=== PATIENT | female | born 1995 | race African-American/Black ===

== ENCOUNTER 2020-01-25 13:40 | Outpatient (CLI) | payer OTHER | END 2020-01-25 13:41 | disposition critical access hospital (66) | LOC: EMS 13:40 | PROVIDERS: ATTEND Surgery | DX: R11.2 Nausea with vomiting, unspecified (principal); R53.1 Weakness | CPT/HCPCS: A0425; A0429 ==

== ENCOUNTER 2020-01-25 13:57 | Emergency (ER) | payer OTHER ==
[2020-01-25] MEDS ORDERED: SODIUM CHLORIDE 0.9% 1,000 ML IV STA ×2 (14:32)
[2020-01-25] MEDS ORDERED: MORPHINE 2 MG/ML CARPUJECT IVP STA ×2 (14:57→16:34)
[2020-01-25] MEDS ORDERED: ONDANSETRON 4 MG/2 ML VIAL IVP STA (14:57)
--- NOTE | 2020-01-25 15:50 | ED Physician Documentation ---
History of Present Illness - Stated complaint Stated Complaint: SICK/ - Chief complaint Chief Complaint: Abd Pain - History obtained from History obtained from: Patient - History of Present Illness Timing: How many weeks ago (2) - Additonal information Additional information: 24-year-old female states that she has had lower abdominal and pelvic pain for the past 2 weeks. She states that she took a test approximately 1 week ago and it was positive. Unsure how far along she is. Has had nausea and vomiting for the past 3 days. No vaginal bleeding or discharge. 1 para 0. Nothing makes it better or worse. Review of Systems Constitutional: denies: Fever, Chills Cardiac: denies: Chest pain / pressure Respiratory: denies: Cough GI: reports: Nausea, Vomiting Skin: denies: Rash Musculoskeletal: denies: Neck pain, Back pain Neurologic: denies: Headache PD PAST MEDICAL HISTORY - Past Medical History Past Medical History: No - Past Surgical History Past Surgical History: No - Present Medications Home Medications: Ambulatory Orders Medication Instructions Recorded Confirmed Metoclopramide [Reglan] 10 mg PO Q6H PRN #20 tablet 01/25/20 Nitrofurantoin Monohyd/M-Cryst 100 mg PO BID #10 capsule 01/25/20 [Macrobid 100 mg Capsule] - Allergies Allergies/Adverse Reactions: Allergies Allergy/AdvReac Type Severity Reaction Status Date / Time No Known Drug Allergies Allergy Verified 01/25/20 14:02 - Social History Does the pt smoke?: No Smoking Status: Never smoker Does the pt drink ETOH?: No Does the pt have substance abuse?: No - Immunizations Immunizations are current?: Yes - POLST Patient has POLST: No PD ED PE NORMAL - Vitals Vital signs reviewed: Yes - General General: Alert and oriented X 3, No acute distress - HEENT HEENT: Moist mucous membranes - Neck Neck: Supple, no meningeal sign - Cardiac Cardiac: RRR - Respiratory Respiratory: No respiratory distress, Clear bilaterally - Abdomen Abdomen: Soft, Non distended, Other (Tender to palpation right low pelvic. No peritoneal signs.) - Female Female : Pt declined - Back Back: No CVA TTP - Derm Derm: Warm and dry - Extremities Extremities: No edema, No calf tenderness / cord - Neuro Neuro: Alert and oriented X 3 Results - Vitals Vitals: Vital Signs - 24 hr 01/25/20 01/25/20 01/25/20 14:02 14:06 16:06 Temperature 36.6 C 36.6 C Heart Rate 86 86 84 Respiratory 16 16 16 Rate Blood Pressure 112/55 L 112/59 L 110/60 O2 Saturation 100 100 100 01/25/20 18:00 Temperature Heart Rate 82 Respiratory 16 Rate Blood Pressure 112/62 O2 Saturation 100 Oxygen O2 Source Room air - Labs Labs: Laboratory Tests 01/25/20 01/25/20 01/25/20 16:20 17:04 17:04 WBC 4.2 L RBC 3.56 L Hgb 10.8 L Hct 31.2 L MCV 87.6 MCH 30.3 MCHC 34.6 RDW 12.2 Plt Count 212 MPV 10.1 Neut # (Auto) 2.2 Lymph # (Auto) 1.6 [place] # (Auto) 0.4 Eos # (Auto) 0.1 Baso # (Auto) 0.0 Absolute Nucleated RBC 0.00 Nucleated RBC % 0.0 Sodium 134 L Potassium 3.6 Chloride 107 Carbon Dioxide 19 L Anion Gap 8.0 BUN < 5 L Creatinine 0.5 Estimated GFR (MDRD) 182 Glucose 76 Calcium 8.7 Phosphorus 3.0 Magnesium 1.9 Total Bilirubin 0.6 AST 16 ALT < 10 L Alkaline Phosphatase 37 L Total Protein 6.7 Albumin 3.9 Globulin 2.8 Albumin/Globulin Ratio 1.4 Lipase 31 HCG, Quant Urine Color YELLOW Urine Clarity HAZY Urine pH 8.0 H Ur Specific [place] 1.010 Urine Protein NEGATIVE Urine Glucose (UA) NEGATIVE Urine Ketones NEGATIVE Urine Occult Blood NEGATIVE Urine Nitrite NEGATIVE Urine Bilirubin NEGATIVE Urine Urobilinogen 0.2 (NORMAL) Ur Leukocyte Esterase TRACE H Urine RBC 0-5 Urine WBC 6-10 H Ur Squamous Epith Cells MANY Squamous H Urine Bacteria Few Ur Microscopic Review INDICATED Urine Culture Comments NOT INDICATED 01/25/20 17:04 WBC RBC Hgb Hct MCV MCH MCHC RDW Plt Count MPV Neut # (Auto) Lymph # (Auto) [place] # (Auto) Eos # (Auto) Baso # (Auto) Absolute Nucleated RBC Nucleated RBC % Sodium Potassium Chloride Carbon Dioxide Anion Gap BUN Creatinine Estimated GFR (MDRD) Glucose Calcium Phosphorus Magnesium Total Bilirubin AST ALT Alkaline Phosphatase Total Protein Albumin Globulin Albumin/Globulin Ratio Lipase HCG, Quant 89521.00 Urine Color Urine Clarity Urine pH Ur Specific [place] Urine Protein Urine Glucose (UA) Urine Ketones Urine Occult Blood Urine Nitrite Urine Bilirubin Urine Urobilinogen Ur Leukocyte Esterase Urine RBC Urine WBC Ur Squamous Epith Cells Urine Bacteria Ur Microscopic Review Urine Culture Comments - Rads (name of study) OB US Radiology: Prelim report reviewed, EMP read contemporaneously, See rad report (1. A single living IUP with the estimated gestational age 6 weeks 5 days corresponding to ultrasound BENY 09/20/2020, which is concordant with clinical dating. 2. A small perigestational bleed. ) PD MEDICAL DECISION MAKING - ED course Complexity details: reviewed results, re-evaluated patient, considered differential, d/w patient, d/w family ED course: Patient with a UTI. Will place on antibiotics. She is well-appearing, nontoxic. Afebrile. No evidence of ectopic , heterotopic . Pain well controlled. Tolerating p.o. without difficulty. Feels better after IV fluids. We will prescribe Reglan for home. She will follow-up with OB for further care. Patient counseled regarding signs and symptoms for which I believe and urgent re-evaluation would be necessary. Patient with good understanding of and agreement to plan and is comfortable going home at this time This document was made in part using voice recognition software. While efforts are made to proofread this document, sound alike and grammatical errors may occur. Departure - Departure Disposition: 01 Home, Self Care Clinical Impression: Vomiting affecting UTI (urinary tract infection) Qualifiers: Urinary tract infection type: acute cystitis Hematuria presence: without hematuria Qualified Code(s): N30.00 - Acute cystitis without hematuria Instructions: ED Preg Morning Sickness, ED UTI Cystitis Female Follow-Up: Your,doctor in 1 week [Other] Prescriptions: Nitrofurantoin Monohyd/M-Cryst [Macrobid 100 mg Capsule] 100 mg PO BID #10 capsule Metoclopramide [Reglan] 10 mg PO Q6H PRN #20 tablet PRN Reason: Nausea / Vomiting Comments: Take all antibiotics until gone. Return if you worsen. You appear to be approximately 6 weeks today. Discharge Date/Time: 01/25/20 18:45
[2020-01-25 16:34] LABS: BILIRUBIN,URINE NEGATIVE (NEGATIVE); GLUCOSE, URINE (UA) NEGATIVE (NEGATIVE); KETONES,URINE (UA) NEGATIVE (NEGATIVE); LEUKOCYTE ESTERASE, URINE TRACE (NEGATIVE); NITRITE,URINE NEGATIVE (NEGATIVE); OCCULT BLOOD,URINE NEGATIVE (NEGATIVE); PROTEIN,URINE NEGATIVE (NEGATIVE); UROBILINOGEN,URINE 0.2 (NORMAL) E.U./dL (NORMAL)
[2020-01-25 16:35] LABS: CLARITY,URINE HAZY (CLEAR)
[2020-01-25 16:43] LABS: BACTERIA,URINE Few /HPF (None Seen); RBC,URINE 0-5 /HPF (0-5); SQUAMOUS EPITHELIAL CELL,UR MANY Squamous (<= Few)
--- NOTE | 2020-01-25 16:56 | Ultrasound Report ---
PROCEDURE: OB First Trimester INDICATIONS: R pelvic pain, +preg test OUTSIDE/PRIOR DATING DATA: Last menstrual period (LMP): 12/13/2019 LMP-based estimated date of delivery (BENY): 09/18/2020. First dating scan (date and location): 01/25/2020 at . Estimated date of delivery (BENY) from first dating scan: 09/20/2020. TECHNIQUE: Real-time scanning was performed of the fetus and maternal pelvic organs, with image documentation. COMPARISON: None. FINDINGS: There is a single living IUP with the estimated gestational age of 6 weeks 5 days. h eart tone is present with heart rate 105 BPM. A small.perigestational bleed is present inferior to gestational sac measuring 2.2 x 0.5 x 1.6 cm. Measurement variability in dating: +/- 4 weeks by LMP, +/- 7 days by mean sac diameter (use before 6 weeks gestation if crown-rump length not able to be measured), +/- 5 days by crown-rump length (6-12 weeks gestation). Maternal organs: Ovaries are grossly normal. There is a corpus luteal cyst in the right ovary measur ing 2.9 x 1.7 x 2.1 cm. In addition, there is a simple cyst in the right ovary measuring 1.9 x 1.8 x 2.1 cm.. Limited images through the kidneys demonstrate no hydronephrosis. IMPRESSION: 1. A single living IUP with the estimated gestational age 6 weeks 5 days corresponding to ultrasound BENY 09/20/2020, which is concordant with clinical dating. 2. A small perigestational bleed. Reviewed by: Carlito Fowler MD on 01/25/2020 4:55 PM PDT Approved by: Carlito Fowler MD on 01/25/2020 4:55 PM PDT Station ID: [id number]
[2020-01-25 17:13] LABS: BASOPHILS % (AUTO) 0.5 %; EOSINOPHILS # (AUTO) 0.1 10^3/uL (0.0-0.7); EOSINOPHILS % (AUTO) 1.4 %; HGB - HEMOGLOBIN 10.8 g/dL (12.0-16.0); LYMPHOCYTES # (AUTO) 1.6 10^3/uL (1.5-3.5); LYMPHOCYTES % (AUTO) 38.1 %; MEAN CORPUSCULAR HEMOGLOBIN 30.3 pg (27.0-31.0); MEAN CORPUSCULAR HGB CONC 34.6 g/dL (32.0-36.0); MEAN CORPUSCULAR VOLUME 87.6 fL (81.0-99.0); MEAN PLATELET VOLUME 10.1 fL (7.9-10.8); MONOCYTES # (AUTO) 0.4 10^3/uL (0.0-1.0); MONOCYTES % (AUTO) 8.7 %; NEUTROPHILS # (AUTO) 2.2 10^3/uL (1.5-6.6); NEUTROPHILS % (AUTO) 51.1 %; PLT - PLATELET COUNT 212 10^3/uL (130-450); RED BLOOD COUNT 3.56 10^6/uL (4.20-5.40); RED CELL DISTRIBUTION WIDTH 12.2 % (12.0-15.0); WHITE BLOOD COUNT 4.2 x10^3/uL (4.8-10.8)
[2020-01-25 17:38] LABS: ALBUMIN 3.9 g/dL (3.2-5.5); ALBUMIN/GLOBULIN RATIO 1.4 (1.0-2.2); ALKALINE PHOSPHATASE 37 IU/L (42-121); ALT ALANINE AMINOTRANSFERASE < 10 IU/L (10-60); AST ASPARTATE AMINOTRANSFERASE 16 IU/L (10-42); BILIRUBIN,TOTAL 0.6 mg/dL (0.2-1.0); BUN - BLOOD UREA NITROGEN < 5 mg/dL (6-20); CALCIUM 8.7 mg/dL (8.5-10.3); CARBON DIOXIDE - CO2 19 mmol/L (21-32); CHLORIDE 107 mmol/L (101-111); CREATININE 0.5 mg/dL (0.4-1.0); GLUCOSE 76 mg/dL (70-100); LIPASE 31 U/L (22-51); MAGNESIUM 1.9 mg/dL (1.7-2.8); SODIUM 134 mmol/L (135-145); TOTAL PROTEIN 6.7 g/dL (6.7-8.2)
[2020-01-25] MEDS ORDERED: NITROFURANTOIN MACRO 100 MG CAPSULE PO STA (18:21)
[2020-01-25 18:44] VITALS: BP 112/62
--- NOTE | 2020-01-26 09:42 | Ultrasound Report ---
PROCEDURE: OB Transvaginal INDICATIONS: R pelvic pain, +preg test OUTSIDE/PRIOR DATING DATA: Last menstrual period (LMP): 12/13/2019. LMP-based estimated date of delivery (BENY): 09/18/2020. First dating scan (date and location): 01/25/2020. Estimated date of delivery (BENY) from first dating scan: 09/24/2020. TECHNIQUE: Real-time scanning was performed of the fetus and maternal pelvic organs, with image documentation. Endovaginal scanning was also performed to better visualize the fetus and maternal ovaries. COMPARISON: None FINDINGS: Embryo: Single live intrauterine is identified with heart rate of 105 bpm. [place]-rum p length measures 1.8 cm corresponding to 5 weeks 6 days. Small focus of subchorionic hemorrhage infe rior to gestational sac is identified measuring 2.2 x 0.5 x 1.6 cm. Measurement variability in dating: +/- 4 weeks by LMP, +/- 7 days by mean sac diameter (use before 6 weeks gestation if crown-rump length not able to be measured), +/- 5 days by crown-rump length (6-12 weeks gestation). Maternal organs: Ovaries demonstrate a right corpus luteal cyst.. Limited images through the kidney s demonstrate no hydronephrosis. IMPRESSION: 1. Single live intrauterine with ultrasound gestational age of 5 weeks 6 days corresponding to ultrasound BENY of 09/24/2020. 2. Small subchorionic hemorrhage. Reviewed by: Suzan Pond MD on 01/26/2020 9:40 AM PDT Approved by: Suzan Pond MD on 01/26/2020 9:40 AM PDT Station ID: [id number]
== END 2020-01-25 18:45 | disposition home or self-care (01) ==
LOC: ED 13:57
DX: O21.9 Vomiting of pregnancy, unspecified (principal); O23.41 Unspecified infection of urinary tract in pregnancy, first trimester; Z3A.01 Less than 8 weeks gestation of pregnancy
CPT/HCPCS: 36415; 76801; 76817; 80053; 81001; 83690; 83735; 84100; 84702; 85025; 96361; 96374; 96375; 96376; 99284; A9270; 81003; 87086

== ENCOUNTER 2020-08-13 08:00 | Outpatient (CLI) | payer OTHER ==
[2020-08-13 17:16] LABS: CANDIDA GROUP DNA NEGATIVE (NEGATIVE); CANDIDA KRUSEI DNA NEGATIVE (NEGATIVE); TRICHOMONAS VAGINALIS DNA NEGATIVE (NEGATIVE)
== END 2020-08-13 23:59 | disposition home or self-care (01) ==
LOC: LAB 08:00
PROVIDERS: ATTEND Advanced Practice Midwife
DX: O23.599 Infection of other part of genital tract in pregnancy, unspecified trimester (principal)
CPT/HCPCS: 87661; 87801

== ENCOUNTER 2020-08-25 10:00 | Outpatient (CLI) | payer OTHER ==
[2020-08-25 19:55] LABS: TRICHOMONAS VAGINALIS DNA NEGATIVE (NEGATIVE)
== END 2020-08-25 23:59 | disposition home or self-care (01) ==
LOC: LAB.R 10:00
PROVIDERS: ATTEND Obstetrics & Gynecology
DX: Z34.90 Encounter for supervision of normal pregnancy, unspecified, unspecified trimester (principal); Z36.85 Encounter for antenatal screening for Streptococcus B
CPT/HCPCS: 87491; 87591; 87661; 87797

== ENCOUNTER 2020-08-28 15:37 | Outpatient (CLI) | payer OTHER ==
--- NOTE | 2020-08-28 17:14 | Ultrasound Report ---
PROCEDURE: OB F/U or Repeat INDICATIONS: UTERINE SIZE/DATE DISCREPENCY OUTSIDE/PRIOR DATING DATA: Last menstrual period (LMP): 12/13/2019. LMP-based estimated date of delivery (BENY): 09/18/2020. First dating scan (date and location): 01/25/2020. Estimated date of delivery (BENY) from first dating scan: 09/20/2020. TECHNIQUE: Real-time scanning was performed of the fetus, with image documentation and biometric measurements. Endovaginal scanning: Not indicated COMPARISON: 01/25/2020. FINDINGS: General: A single living intrauterine gestation is present. Presentation: Vertex Placenta: Placental position is posterior fundal, without previa. Amniotic fluid index: 17.9 cm, normal for gestational age. heart rate: 137 beats per minute. Maternal cervical canal: cervical canal is closed and is grossly normal in length. biometrics: Biparietal diameter: 8.4 cm, 33 weeks, 6 days Head circumference: 31 cm, 34 weeks, 4 days Abdominal circumference: 30.7 cm, 34 weeks, 5 days Femur length: 6.7 cm, 34 weeks, 3 days Estimated gestational age from initial scan: 37 weeks, 0 day. Composite gestational age from present scan: 34 weeks, 3 days Estimated weight and percentile: 2448 g, 6.6% Measurement variability in biometric dating: +/- 10 days from 12-20 weeks gestation, +/- 2 weeks from 20-30 weeks gestation, +/- 3 weeks at 30 weeks gestation or more. Other: chest, stomach, bilateral kidneys and urinary bladder are visualized and are within norm al limits. Umbilical artery S/D ratio measures 2.3, 2.1 and 2.5 and are within normal limits. IMPRESSION: 1. Single live intrauterine with fetus in vertex presentation. Normal amount of amniotic fl uid. heart rate is 137 bpm. 2. Estimated weight is at 6.6%. Both BPD and head circumference measurements are less than 5%. Femur length is at 3.4%, abdominal circumference is less than 10%. 3. Normal umbilical artery S/D ratio. Reviewed by: Chas Raymond MD on 08/28/2020 5:12 PM PST Approved by: Chas Raymond MD on 08/28/2020 5:12 PM PST Station ID: [id number]
== END 2020-08-28 15:38 | disposition home or self-care (01) ==
LOC: DI 15:37
PROVIDERS: ATTEND Obstetrics & Gynecology
DX: O26.843 Uterine size-date discrepancy, third trimester (principal); Z3A.34 34 weeks gestation of pregnancy

== ENCOUNTER 2020-09-01 16:36 | Outpatient (CLI) | payer OTHER ==
[2020-09-01 17:09] VITALS: BP 116/73
--- NOTE | 2020-09-01 21:28 | PROCEDURE REPORT ---
- HPI Diagnosis/Indication for NST: Intrauterine growth restriction Current EDU 09/18/20 Gestation 37 Weeks and 4 Days 1 Para 0 Vital Signs Temperature 98.4 F 09/01/20 16:34 Heart Rate 101 H 09/01/20 16:34 Respiratory Rate 16 09/01/20 16:34 Blood Pressure 116/73 09/01/20 16:34 O2 Saturation 100 09/01/20 16:34 Temperature 98.4 F 09/01/20 16:34 Heart Rate 101 H 09/01/20 16:34 Respiratory Rate 16 09/01/20 16:34 Blood Pressure 116/73 09/01/20 16:34 O2 Saturation 100 09/01/20 16:34 - NST Procedure NST Procedure Start Date 09/01/20 Start Time 16:32 Stop Time 17:01 Vibroacoustic Stimulation Used Yes Patient States Movement Yes - Results and Plan Findings/Impression: Baseline: BPM 140 Variability: Moderate Accelerations: Present Decelerations: Absent Trends in FHR over time: no changes [place] contractions in 10 minutes: 0 Impression: reactive Category 1 NST
== END 2020-09-01 17:00 | disposition home or self-care (01) ==
LOC: FBP 16:36 → WFO 16:36
PROVIDERS: ATTEND Obstetrics & Gynecology
DX: O36.5930 Maternal care for other known or suspected poor fetal growth, third trimester, not applicable or unspecified (principal); Z3A.37 37 weeks gestation of pregnancy
CPT/HCPCS: 59025

== ENCOUNTER 2020-09-04 16:45 | Inpatient (IN) | payer OTHER ==
[2020-09-04] MEDS ORDERED: CARBOPROST TROMETHAMINE 250 MCG/ML AMP IM PRN (17:21)
[2020-09-04] MEDS ORDERED: OXYTOCIN/SODIUM CHLORIDE 500 ML IV PRN (17:21)
[2020-09-04] MEDS ORDERED: SODIUM CHLORIDE FLUSH 0.9% 10 ML SYRINGE IVP PRN (17:21)
[2020-09-04] MEDS ORDERED: OXYTOCIN 10 UNIT/ML VIAL IM PRN (17:21)
[2020-09-04] MEDS ORDERED: METHYLERGONOVINE 0.2 MG/ML VIAL IM PRN (17:21)
[2020-09-04] MEDS ORDERED: LIDOCAINE-MPF 1% 30 ML VIAL ID PRN (17:21)
[2020-09-04] MEDS ORDERED: miSOPROStoL 200 MCG TABLET BC PRN (17:21)
[2020-09-04] MEDS ORDERED: TRANEXAMIC ACID IN NACL 1,000 MG/100 ML BAG IV PRN (17:21)
[2020-09-04] MEDS ORDERED: ONDANSETRON 4 MG/2 ML VIAL IVP PRN (17:21)
[2020-09-04 17:59] LABS: BASOPHILS % (AUTO) 0.2 %; EOSINOPHILS # (AUTO) 0.1 10^3/uL (0.0-0.7); EOSINOPHILS % (AUTO) 1.7 %; HCT - HEMATOCRIT 31.7 % (37.0-47.0); HGB - HEMOGLOBIN 10.2 g/dL (12.0-16.0); LYMPHOCYTES # (AUTO) 1.4 10^3/uL (1.5-3.5); LYMPHOCYTES % (AUTO) 29.5 %; MEAN CORPUSCULAR HEMOGLOBIN 30.5 pg (27.0-31.0); MEAN CORPUSCULAR HGB CONC 32.2 g/dL (32.0-36.0); MEAN CORPUSCULAR VOLUME 94.9 fL (81.0-99.0); MEAN PLATELET VOLUME 11.1 fL (7.9-10.8); MONOCYTES # (AUTO) 0.5 10^3/uL (0.0-1.0); MONOCYTES % (AUTO) 10.9 %; NEUTROPHILS # (AUTO) 2.7 10^3/uL (1.5-6.6); NEUTROPHILS % (AUTO) 57.3 %; PLT - PLATELET COUNT 164 10^3/uL (130-450); RED BLOOD COUNT 3.34 10^6/uL (4.20-5.40); RED CELL DISTRIBUTION WIDTH 13.5 % (12.0-15.0); WHITE BLOOD COUNT 4.8 x10^3/uL (4.8-10.8)
[2020-09-04] MEDS ORDERED: LABETALOL 20 MG/4 ML SYRINGE IVP PRN ×3 (18:20)
[2020-09-04] MEDS ORDERED: NIFEdipine 10 MG CAPSULE PO PRN (18:20)
[2020-09-04] MEDS ORDERED: ONDANSETRON ODT 4 MG TABLET TL PRN (18:20)
[2020-09-04] MEDS ORDERED: TERBUTALINE 1 MG/ML VIAL SUBQ PRN (18:20)
[2020-09-04] MEDS ORDERED: METOCLOPRAMIDE 10 MG TABLET PO PRN (18:20)
[2020-09-04] MEDS ORDERED: hydrALAZINE INJ 20 MG/ML VIAL IVP PRN ×2 (18:20)
--- NOTE | 2020-09-04 18:35 | HISTORY & PHYSICAL EXAMINATION ---
Admit History - Visit Reason Visit Reason: Other (Induction of labor with cervical ripening) - : 1 Parity: 0 Care: positive: ÁLVARO-Hannah, Other Risk/History: positive: None Complications This : positive: Other ( growth restriction) Smoking Status: Never smoker - Mother's Labs Mother's Blood Type: positive: O Mother's RH: positive: Positive GBS: positive: Group B Step Negative Rubella Status: positive: Immune - Other Maternal History Other Maternal History: Patient is a 25 yo at 38+0 wga here for induction of labor. Patient was a transfer of care from the [facility] at approximately 34 wga. She moved to the from [facility], about 8 months ago. was generally uncomplicated other than postive CT in early and BV in later , both treated with CT with a negative test of cure. At her 36 weeks visit, she was measuring S<D. Formal US was obtained and growth was noted to be 6.5%ile. As such, she presents for induction of labor for growth restriction. Reviewed implications of EFW 6.6% and indication for induction of labor Review induction process with assistance of telephonic fondant puff maker in clinic. Written informed consent was obtained. She and her partner do not have questions at this time. She endorses FM. Denies LOF/CTX/VB. PMH: none PSH: none Initial U/S: at 10.5wks c/w LMP for BENY 09/18/20 O pos/Rubella immune VZV non immune- discussed varivax and safety concerns in preg Gentic testing: Serum Int- neg, CF screen- neg FAS: wnl. EFW 18%. Posterior placenta. BALJIT wnl. 3VC Glucola - 73 Flu: declines TDAP 06/26/20 GBS & GC/CT neg HSV: denies self and partner Breast pump [place], please confirm MOD: . Spouse Ailyn Jj. Girl- Unaware of epidural- very accepting/suggestible. pp contraception: PAP: 02/26/2020-nilm Meds/Allgy - Home Medications Home Medications: Ambulatory Orders Medication Instructions Recorded Confirmed Metoclopramide [Reglan] 10 mg PO Q6H PRN #20 tablet 01/25/20 Nitrofurantoin Monohyd/M-Cryst 100 mg PO BID #10 capsule 01/25/20 [Macrobid 100 mg Capsule] - Allergies Allergies/Adverse Reactions: Allergies Allergy/AdvReac Type Severity Reaction Status Date / Time No Known Drug Allergies Allergy Verified 01/25/20 14:02 Review of Systems - Other Findings Other Findings: As per HPI, otherwise remaining systems are negative. Physical - Abdominal Exam Vital Signs: Temp Pulse Resp BP Pulse Ox 99.0 F 09/04/20 17:30 Contraction Frequency (min/apart): none - Monitoring Heart Rate Baseline: 135 mod danny 15x15 accels no decels Strip Review: positive: Category I - Presentation Presentation: positive: Vertex - Vaginal Exam Membranes: positive: Membranes intact - Other Notes Labor Progress Note/Additional Text: GEN: NAD HEENT: NCAT CV: RR RESP: nl effort ABD: Gravid, S&NT/ND EXT: WWP, no LE edema PSYCH: appropriate affect NEURO: A&O, normal gait and coordination SVE: Deferered given lack of ctx, primiparity Plan for Labor - Plan For Labor Plan for Labor: 25 yo at 38+0 wga here for IOL at 38+0 wga for EFW 6.6%ile IOL: -Start with cervical ripening misoprosotl 50 mcg BC Q4H for up to 6 doses -Reviewed possibility of schmidt balloon -Pitocin with favorable -AROM as indicated FWB: Cat I tracing, vertex by BSUS, GBS neg, EFW 6.6%ile -Cont EFM PAIN: -Epidural as desired -Nitrous as desired -Fentanyl 50 mcg IV Q1H prn pain, to max dose of 200 mcg and not to be given after 7 cm Anticipate In patient care
[2020-09-04] MEDS: miSOPROStoL 100 MCG TABLET BC SCH ×2 (18:48→22:17)
[2020-09-04] MEDS: LACTATED RINGERS 1,000 ML IV SCH (20:40)
[2020-09-05] MEDS: miSOPROStoL 100 MCG TABLET BC SCH ×5 (02:17→16:08)
[2020-09-05] MEDS: LACTATED RINGERS 1,000 ML IV SCH ×2 (03:35→18:33)
[2020-09-05] MEDS: SODIUM CHLORIDE FLUSH 0.9% 10 ML SYRINGE IVP SCH ×2 (09:27→18:34)
--- NOTE | 2020-09-05 11:10 | PROVIDER PROGRESS NOTE ---
Subjective - Prog Note Date Prog Note Date: 09/05/20 Prog Note Time: 11:08 - Subjective Subjective: Patient is not feeling contractions. No LOF or VB. Has had 4 doses of miso, one at 50 mcg and 3 at 25 mcg. Contractions have slowed form earlier in the process. No complaints. Objective - Vital Signs/Intake & Output Vital Signs: 104/55 80 17 Intake & Output: Intake & Output 09/02/20 09/03/20 09/04/20 09/05/20 23:59 23:59 23:59 23:59 Intake Total 1676.667 Output Total 1180 Balance 496.667 - Objective General Appearance: positive: No acute distress Respiratory: positive: No respiratory distress Cardiovascular: positive: Other (RR) Abdomen: positive: Other (gravid, S&NT) Skin: positive: Color nml Extremities: positive: Non-tender, No pedal edema Neurologic/Psychiatric: positive: Oriented x3 - Lab Results Fish Bones: 09/04/20 17:30 Other Labs: Lab Results x24hrs 09/04/20 09/04/20 Range/Units 17:30 17:30 WBC 4.8 (4.8-10.8) x10^3/uL RBC 3.34 L (4.20-5.40) 10^6/uL Hgb 10.2 L (12.0-16.0) g/dL Hct 31.7 L (37.0-47.0) % MCV 94.9 (81.0-99.0) fL MCH 30.5 (27.0-31.0) pg MCHC 32.2 (32.0-36.0) g/dL RDW 13.5 (12.0-15.0) % Plt Count 164 (130-450) 10^3/uL MPV 11.1 H (7.9-10.8) fL Neut # (Auto) 2.7 (1.5-6.6) 10^3/uL Lymph # (Auto) 1.4 L (1.5-3.5) 10^3/uL [place] # (Auto) 0.5 (0.0-1.0) 10^3/uL Eos # (Auto) 0.1 (0.0-0.7) 10^3/uL Baso # (Auto) 0.0 (0.0-0.1) 10^3/uL Absolute Nucleated RBC 0.00 x10^3/uL Nucleated RBC % 0.0 /100WBC Blood Type O POSITIVE Antibody Screen NEGATIVE - Other Results/Comments Other Results/Comments: SVE FT/50/high/posterior/soft EFM 135 mod danny 15x15 accels no decels TOCO: irreg, Q5 Assessment/Plan - Problem List (1) Encounter for induction of labor Impression: IOL: Has had miso x4, 50 mcg x1 and 25 mcg x3 Cervix remains unfavorable but softer and about 50% effaced -Will increase to 50 mcg for remaining 2 doses -Consider Lim if not favorable after 6th dose -Pitocin when favorable FWB: Cat I tracing, GBS neg, EFW 6.65 -Cont EFM PAIN: comfortable at present. -All options remain open at this time.
--- NOTE | 2020-09-05 11:51 | ANESTHESIA ---
Pre-Anesthesia VS, & Labs - Diagnosis active labor - Procedure epidural placement for labor Vital Signs: Temp Pulse Resp BP Pulse Ox 37.2 C 09/04/20 18:14 Height: 5 ft 5 in Weight (kg): 69 kg Body Mass Index: 25.3 BMI Classification: Overweight - NPO >8 hours - Is Patient ?: Yes - Lab Results Current Lab Results: Laboratory Tests 09/04/20 17:30: Blood Type O POSITIVE, Antibody Screen NEGATIVE 09/04/20 17:30: WBC 4.8, RBC 3.34 L, Hgb 10.2 L, Hct 31.7 L, MCV 94.9, MCH 30.5, MCHC 32.2, RDW 13.5, Plt Count 164, MPV 11.1 H, Neut # (Auto) 2.7, Lymph # (Auto) 1.4 L, [place] # (Auto) 0.5, Eos # (Auto) 0.1, Baso # (Auto) 0.0, Absolute Nucleated RBC 0.00, Nucleated RBC % 0.0 Lab results reviewed: Yes Fish Bones: 09/04/20 17:30 Home Medications and Allergies Active Medications Carboprost Tromethamine (Carboprost Tromethamine 250 Mcg/Ml Amp) 250 mcg IM Q15M PRN PRN Reason: Step 4: Hemorrhage protocol Stop: 09/09/20 17:22 Hydralazine HCl (Hydralazine Inj 20 Mg/Ml Vial) 5 - 20 mg IVP Q20M PRN; Protocol PRN Reason: SBP >160 or DBP >110 Hydralazine HCl (Hydralazine Inj 20 Mg/Ml Vial) 10 mg IVP .ONCE PRN; Protocol PRN Reason: Step 9 of Labetalol protocol Stop: 09/09/20 18:23 Oxytocin/Sodium Chloride (Pitocin/Sodium Chloride) 500 mls @ 999 mls/hr IV PRN PRN; Protocol PRN Reason: POST- HEMORR PREVENTION Stop: 09/09/20 17:22 Tranexamic Acid (Tranexamic 1,000 Mg/100ml-Nacl) 1,000 mg in 100 mls @ 600 mls/hr IV .ONCE PRN PRN Reason: EBL >1200mL and within 3hr Stop: 09/09/20 17:22 Lactated Ringer's (Lr) 1,000 mls @ 100 mls/hr IV .Q10H [facility] Last Infusion: 09/05/20 10:36 Dose: 0 mls/hr Documented by: Labetalol HCl (Labetalol 20 Mg/4 Ml Syringe) 20 - 80 mg IVP Q10M PRN; Protocol PRN Reason: SBP >160 or DBP >110 Labetalol HCl (Labetalol 20 Mg/4 Ml Syringe) 20 mg IVP .ONCE PRN; Protocol PRN Reason: Step 9 of nifedipine protocol Stop: 09/09/20 18:23 Labetalol HCl (Labetalol 20 Mg/4 Ml Syringe) 40 mg IVP .ONCE PRN; Protocol PRN Reason: Step 9 of hydrALAZine protocol Stop: 09/09/20 18:23 Lidocaine HCl (Lidocaine-Mpf 1% 30 Ml Vial) 30 ml ID .ONCE PRN PRN Reason: PERINEAL REPAIR Stop: 09/09/20 17:22 Methylergonovine Maleate (Methylergonovine 0.2 Mg/Ml Vial) 0.2 mg IM .ONCE PRN PRN Reason: Step 2: Hemorrhage protocol Stop: 09/09/20 17:22 Metoclopramide HCl (Metoclopramide 10 Mg Tablet) 5 mg PO Q6H PRN PRN Reason: Nausea / Vomiting Misoprostol (Misoprostol 200 Mcg Tablet) 800 mcg BC .ONCE PRN PRN Reason: Step 3: Hemorrhage protocol Stop: 09/09/20 17:22 Misoprostol (Misoprostol 100 Mcg Tablet) 50 mcg BC Q4H [facility] Stop: 09/05/20 15:21 Last Admin: 09/05/20 11:25 Dose: 50 mcg Documented by: Nifedipine (Nifedipine 10 Mg Capsule) 10 - 20 mg PO Q20M PRN; Protocol PRN Reason: SBP >160 or DBP >110 Ondansetron HCl (Ondansetron 4 Mg/2 Ml Vial) 4 mg IVP Q4HR PRN PRN Reason: Nausea / Vomiting Ondansetron HCl (Ondansetron Odt 4 Mg Tablet) 4 mg TL Q4HR PRN PRN Reason: Nausea / Vomiting Oxytocin (Oxytocin 10 Unit/Ml Vial) 10 unit IM .ONCE PRN PRN Reason: Step one: If no IV access Stop: 09/09/20 17:22 Sodium Chloride (Sodium Chloride Flush 0.9% 10 Ml Syringe) 10 ml IVP 0100,0900,1700 TADEO Last Admin: 09/05/20 09:27 Dose: Not Given Documented by: Sodium Chloride (Sodium Chloride Flush 0.9% 10 Ml Syringe) 10 ml IVP PRN PRN PRN Reason: NEEDED PER PROVIDER ORDERS Terbutaline Sulfate (Terbutaline 1 Mg/Ml Vial) 0.25 mg SUBQ Q1H PRN PRN Reason: tachysystole or distress Allergies/Adverse Reactions: Allergies Allergy/AdvReac Type Severity Reaction Status Date / Time No Known Drug Allergies Allergy Verified 01/25/20 14:02 Anes History & Medical History - Anesthetic History Anesthesia Complications: reports: No previous complications Family history of Anesthesia Complications: Denies Family history of Malignant Hyperthermia: Denies - Medical History Cardiovascular: reports: None Pulmonary: reports: 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
[2020-09-05] MEDS: fentaNYL 100 MCG/2 ML VIAL IVP PRN (22:19)
--- NOTE | 2020-09-05 22:59 | PROVIDER PROGRESS NOTE ---
Subjective - Prog Note Date Prog Note Date: 09/05/20 Prog Note Time: 22:55 - Subjective Subjective: Patient is comfortable. Has received 6 doses of miso Initial dose 50 mcg, then 3 doses at 25 mcg and then 2 doses at 50 mcg No significant change Pt received fentanyl 50 mcg IV x1 Attempt to place Lim balloon with speculum Could not insert past internal os Will start low dose pitocin and reassess in am In absence of marked cervical change, will attempt Lim again Otherwise, will proceed with pitocin EFM 135 mod danny 15x15 accels no decels TOCO: A4-5 min, irreg Periods of mild variability and no accels with spontaneous return to moderate va riability without intervention Starting low dose pitocin Cat I tracing Objective - Vital Signs/Intake & Output Intake & Output: Intake & Output 09/02/20 09/03/20 09/04/20 09/05/20 23:59 23:59 23:59 23:59 Intake Total 2976.667 Output Total 1180 Balance 1796.667 - Lab Results Fish Bones: 09/04/20 17:30
[2020-09-05] MEDS: OXYTOCIN/SODIUM CHLORIDE 500 ML IV SCH (23:15)
[2020-09-06] MEDS: LACTATED RINGERS 1,000 ML IV SCH ×2 (02:11→11:52)
[2020-09-06] MEDS: SODIUM CHLORIDE FLUSH 0.9% 10 ML SYRINGE IVP SCH ×5 (08:46→17:24)
--- NOTE | 2020-09-06 13:15 | PROVIDER PROGRESS NOTE ---
Subjective - Prog Note Date Prog Note Date: 09/06/20 Prog Note Time: 12:15 - Subjective Subjective: Patient is only feeling mild contractions. Pitocin at 15 mU/min No LOF or VB. Cat I tracing. No concerns. Objective - Vital Signs/Intake & Output Reviewed Vital Signs: Yes Vital Signs: 79 18 102/56 Intake & Output: Intake & Output 09/03/20 09/04/20 09/05/20 09/06/20 23:59 23:59 23:59 23:59 Intake Total 2976.667 1351.449 Output Total 1180 Balance 5865.381 8264.449 - Objective General Appearance: positive: No acute distress Respiratory: positive: No respiratory distress Cardiovascular: positive: Other (RR) Abdomen: positive: Non-tender, Other (gravid, S&NT) Back: positive: Nml inspection Skin: positive: Color nml Extremities: positive: Non-tender, No pedal edema - Lab Results Fish Bones: 09/04/20 17:30 - Other Results/Comments Other Results/Comments: SVE FT/50/high/posterior Assessment/Plan - Problem List (1) Encounter for induction of labor Impression: Has had miso x6 Pitocin 15 mU/min Failed attempt at Lim placement -Rest for 4 hours -Additional dose of miso -patient requested additional attempt at Lim balloon Will attempt at 6-8 pm after repeat dose of miso Cat I tracing Anticipate
[2020-09-06] MEDS ORDERED: miSOPROStoL 100 MCG TABLET BC SCH (17:30)
[2020-09-06] MEDS: fentaNYL 100 MCG/2 ML VIAL IVP PRN ×2 (22:24→22:55)
--- NOTE | 2020-09-06 23:18 | PROVIDER PROGRESS NOTE ---
Subjective - Prog Note Date Prog Note Date: 09/06/20 Prog Note Time: 23:16 - Subjective Subjective: Patient rested for several hours after reaching 15 mU/min of pitocin without significant cervical change. Received another 50 mcg dose of miso No change in SVE. Patient ready for attempt at Lim balloon placement. No LOF or VB. Not feeling contractions. Objective - Vital Signs/Intake & Output Reviewed Vital Signs: Yes Vital Signs: Vital Signs x48h Temp Pulse Resp BP Pulse Ox 09/06/20 19:28 98.8 F 84 22 115/65 100 Intake & Output: Intake & Output 09/03/20 09/04/20 09/05/20 09/06/20 23:59 23:59 23:59 23:59 Intake Total 2976.667 1529.616 Output Total 1180 Balance 3258.061 6470.616 - Objective General Appearance: positive: No acute distress Respiratory: positive: No respiratory distress Cardiovascular: positive: Other (RR) Abdomen: positive: Non-tender, No distention, Other (gravid) Skin: positive: Color nml, Warm Extremities: positive: Non-tender, No pedal edema Neurologic/Psychiatric: positive: Oriented x3 - Lab Results Fish Bones: 09/04/20 17:30 Other Labs: Lab Results x24hrs 09/04/20 Range/Units 19:10 Coronavirus (PCR) NEGATIVE - Other Results/Comments Other Results/Comments: SVE FT/50/high/posterior/soft EFM 135 mod danny 15x15 accels no decels TOCO: intermittent Assessment/Plan - Problem List (1) Encounter for induction of labor Impression: IOL: Has had miso x6 Pitocin to 15 mU/min Miso 50 mcg x1 after 4 hours rest Lim balloon placed with 60 cc in the uterine bulb and 40 cc in the vaginal bulb FWB: Cat I tracing -CEFM PAIN: Has received fentanyl 50 mcg x2 -must wait one hour prior to next dose -Discussed nitrous oxide vs epidral as alternative Cont with IOL Anticipate
[2020-09-07] MEDS: fentaNYL 100 MCG/2 ML VIAL IVP PRN (01:01)
--- NOTE | 2020-09-07 01:24 | PROVIDER PROGRESS NOTE ---
Subjective - Prog Note Date Prog Note Date: 09/07/20 Prog Note Time: 01:23 - Subjective Subjective: Lim in place EFM currenlty 125 mod danny 15x15 accels no decels TOCO: intermittent Tracing shows sleep cycles with mild variability Spontaneous return to mod danny with accels Objective - Vital Signs/Intake & Output Vital Signs: Vital Signs x48h Temp Pulse Resp BP Pulse Ox 09/06/20 19:28 98.8 F 84 22 115/65 100 Intake & Output: Intake & Output 09/04/20 09/05/20 09/06/20 09/07/20 23:59 23:59 23:59 23:59 Intake Total 2976.667 1529.616 Output Total 1180 Balance 0628.245 0386.616 - Lab Results Fish Bones: 09/04/20 17:30 Other Labs: Lab Results x24hrs 09/04/20 Range/Units 19:10 Coronavirus (PCR) NEGATIVE
[2020-09-07] MEDS: LACTATED RINGERS 1,000 ML IV SCH ×5 (01:47→15:05)
[2020-09-07] MEDS ORDERED: ROPIVACAINE 0.2% 200 MG/100 ML BAG EP ONE (02:25)
[2020-09-07] MEDS ORDERED: ePHEDrine 50 MG/ML VIAL IVP ONE (03:14)
[2020-09-07] MEDS ORDERED: diphenhydrAMINE INJ 50 MG/ML VIAL IVP PRN (03:17)
[2020-09-07] MEDS ORDERED: NALOXONE 0.4 MG/ML VIAL IVP PRN (03:17)
[2020-09-07] MEDS ORDERED: METOCLOPRAMIDE 10 MG/2 ML VIAL IVP PRN (03:17)
[2020-09-07] MEDS ORDERED: NALBUPHINE 10 MG/ML AMP IVP PRN (03:17)
[2020-09-07] MEDS ORDERED: ONDANSETRON 4 MG/2 ML VIAL IVP PRN (03:17)
[2020-09-07] MEDS ORDERED: ROPIVACAINE 0.2% 200 MG/100 ML BAG EP PRN (03:17)
[2020-09-07] MEDS: ePHEDrine 50 MG/ML VIAL IVP PRN ×9 (03:45→05:57)
[2020-09-07] MEDS: SODIUM CHLORIDE FLUSH 0.9% 10 ML SYRINGE IVP SCH ×6 (08:03→14:06)
[2020-09-07] MEDS ORDERED: LACTATED RINGERS 500 ML IV ONE (08:10)
[2020-09-07] MEDS: OXYTOCIN/SODIUM CHLORIDE 500 ML IV SCH (10:18)
--- NOTE | 2020-09-07 13:02 | PROVIDER PROGRESS NOTE ---
Subjective - Prog Note Date Prog Note Date: 09/07/20 Prog Note Time: 09:00 - Subjective Subjective: Lim balloon remains in place. Comfortable with epidural. No LOF or VB. Objective - Vital Signs/Intake & Output Reviewed Vital Signs: Yes Vital Signs: 108/61 92 99% Intake & Output: Intake & Output 09/04/20 09/05/20 09/06/20 09/07/20 23:59 23:59 23:59 23:59 Intake Total 2976.667 1602.634 3748.833 Output Total 1180 1200 Balance 8879.718 6800.616 1345.833 - Objective General Appearance: positive: No acute distress Neck: positive: Nml inspection Respiratory: positive: No respiratory distress Cardiovascular: positive: Regular rate & rhythm Abdomen: positive: Non-tender, Other (Gravid, S&NT/ND) Back: positive: Nml inspection Skin: positive: Color nml Extremities: positive: Non-tender Neurologic/Psychiatric: positive: Oriented x3 - Lab Results Fish Bones: 09/04/20 17:30 Other Labs: Lab Results x24hrs 09/04/20 Range/Units 19:10 Coronavirus (PCR) NEGATIVE - Other Results/Comments Other Results/Comments: EFM 145 mod danny 15x15 accels no decels TOCO: intermittent Assessment/Plan - Problem List (1) Encounter for induction of labor Impression: IOL: S/p Miso x6, pitocin to 15 mU/min, miso x1 and now with Lim balloon in place Increased tension on Lim balloon. Will start pitocin when Lim falls out FWB: Cat I tracing interspersed with sleep cycles -CEFM PAIN: Well managed with epidural in place
--- NOTE | 2020-09-07 18:37 | PROVIDER PROGRESS NOTE ---
Subjective - Prog Note Date Prog Note Date: 09/07/20 Prog Note Time: 10:43 - Subjective Subjective: Lim balloon fell out at approximately 10 am SVE per RN exam, /-3/anterior Cat I tracing Starting pitocin at 1 mU/min Objective - Vital Signs/Intake & Output Intake & Output: Intake & Output 09/04/20 09/05/20 09/06/20 09/07/20 23:59 23:59 23:59 23:59 Intake Total 2976.667 7083.255 6721.816 Output Total 1180 4450 Balance 1731.480 4630.616 -886.184 - Lab Results Fish Bones: 09/04/20 17:30
--- NOTE | 2020-09-07 18:41 | PROVIDER PROGRESS NOTE ---
Subjective - Prog Note Date Prog Note Date: 09/07/20 Prog Note Time: 13:30 - Subjective Subjective: comfortable with epidural Cat I tracing Pitocin at 5 mU/min SVE 4/70/high/anterior head sitting high on pubic bone EFM 145 mod danny no accels no decels TOCO: irreg Objective - Vital Signs/Intake & Output Intake & Output: Intake & Output 09/04/20 09/05/20 09/06/20 09/07/20 23:59 23:59 23:59 23:59 Intake Total 2976.667 7825.554 1691.816 Output Total 1180 4450 Balance 3530.350 0377.616 -886.184 - Lab Results Fish Bones: 09/04/20 17:30
--- NOTE | 2020-09-07 18:52 | PROVIDER PROGRESS NOTE ---
Subjective - Prog Note Date Prog Note Date: 09/07/20 Prog Note Time: 18:50 - Subjective Subjective: Checked patient at 17:01 SVE 5/70/hig and very anterior with head caught up on pubic bone EFM 145 mod danny [id number] accels no decels TOCO: Q3 min Worked with RN team to implement position change with Spining Babies technique to alter position WIll let patient rest in exagerated side lying position for 30 minutes and then will check again Pitocin at 13 mU/min Cat I tracing Objective - Vital Signs/Intake & Output Intake & Output: Intake & Output 09/04/20 09/05/20 09/06/20 09/07/20 23:59 23:59 23:59 23:59 Intake Total 2976.667 7312.857 4051.816 Output Total 1180 4450 Balance 1316.856 3440.616 -886.184 - Lab Results Fish Bones: 09/04/20 17:30
[2020-09-07] MEDS ORDERED: LIDOCAINE-MPF 1% 30 ML VIAL ONE (22:00)
--- NOTE | 2020-09-08 01:13 | PROVIDER PROGRESS NOTE ---
Subjective - Prog Note Date Prog Note Date: 09/08/20 Prog Note Time: 01:07 - Subjective Subjective: Has had bolus to epidural earlier this evening. Now comfortable. Pitocin at 15 VS 88 15 115/59 SVE 5-6/60/-2/mid AROM with passage of clear fluid EFM 135 mod danny 15x15 accels with scalp stim, no decels TOCO: Q2-3 min Cat I tracing Cont with pitocin induction Pain well managed with epidural Objective - Vital Signs/Intake & Output Intake & Output: Intake & Output 09/05/20 09/06/20 09/07/20 09/08/20 23:59 23:59 23:59 23:59 Intake Total 2976.667 0036.747 7266.816 Output Total 1180 4450 Balance 3162.855 8640.616 -886.184 - Lab Results Fish Bones: 09/04/20 17:30
--- NOTE | 2020-09-08 01:48 | CONSULTATION NOTE ---
Consultation Report: called to bedside for back pain in active labor. Epidural intact and working appropriately. Lidocaine 1% PF 8ml bolus per epidural. Pt claims improved relief and to be comfortable after bolus. VSS
[2020-09-08] MEDS ORDERED: fentaNYL 100 MCG/2 ML VIAL ONE (01:50)
--- NOTE | 2020-09-08 01:52 | CONSULTATION NOTE ---
Consultation Report: [id number]- called to the bedside as pt requesting increased pain relief per epidural. Pt claims that frequency of intermittent bolus not effective in relieving labor pain. Epidural checked, intact, and working appropriately. Epidural settings changed to 10ml basal infusion rate with 5cc PCEA bolus dose with lockout interval every 15 min, max hourly dose 25ml. Pt and educated about PCEA use. Fentanyl 100mcg per epidural given to bridge for pain relief. VSS. RN notified
--- NOTE | 2020-09-08 06:33 | PROVIDER PROGRESS NOTE ---
Subjective - Prog Note Date Prog Note Date: 09/08/20 Prog Note Time: 06:29 - Subjective Subjective: Checked patient at about 4 am after patietn reported lots of pressure. Had a swollen cervix and was given IV benadryl. At 6:10, still reporting lotsof pressure. SVE tight anterior lip and 2 cm posterior lip. Massaged the anterior lip to poitn of retraction but still has posterior lip. Positioned patient in high throne. 0 station. Anterior fontanel to posterior vagina, unable to palpate posterior fontanel, presumed OA Pitocin at 18. EFM 145 mild/mod danny 15x15 accels and response to scalp stim, no decels TOCO:Q2-3 min Will have all uterotonics inthe room Objective - Vital Signs/Intake & Output Intake & Output: Intake & Output 09/05/20 09/06/20 09/07/20 09/08/20 23:59 23:59 23:59 23:59 Intake Total 2976.667 1497.733 6215.816 Output Total 1180 4450 Balance 3516.773 4567.616 -886.184 - Lab Results Fish Bones: 09/04/20 17:30 Other Labs: Lab Results x24hrs 09/08/20 Range/Units 04:05 Blood Type O POSITIVE Antibody Screen NEGATIVE
[2020-09-08] MEDS ORDERED: CALCIUM CARBONATE CHEW 500 MG TABLET PO SCH (09:00)
[2020-09-08] MEDS ORDERED: SIMETHICONE CHEW 80 MG TABLET PO PRN (09:12)
--- NOTE | 2020-09-08 09:14 | DELIVERY NOTE ---
Delivery Note - Infant Delivery Method Infant Delivery Method: positive: Spontaneous vaginal delivery - Cervical Ripening Method Cervical Ripening Method: positive: Balloon device, Misoprostil, Oxytocin - Presentation Presentation: positive: Vertex, ANNEL - right occiput anterior - Nuchal Cord Nuchal Cord: positive: Reduced - Anesthetic Anesthetic Type: - Episiotomy Type Episiotomy Type: positive: None - Laceration Laceration: positive: 2nd degree, Perineal - Suture Suture Type: positive: Vicryl Suture Size: positive: 3-0 - Delivery Outcome Delivery Outcome: positive: Livebirth - : positive: Placed in direct skin contact with mother, Bulb syringe, Stimulated, Warmed, [place] used [place] sex: positive: Female - Cord Cord: positive: 3 vessels - Placenta Placenta: positive: Intact, Expressed - Estimated Blood Loss Estimated Blood Loss (in cc): 150 - Post Delivery Events Post Delivery Events: positive: No post delivery events - Delivery Comments (Free Text/Narrative) Delivery Comments (Free Text/Narrative): STAGE I: Patient is a 25 yo admitted on 09/04/20 at 38+0 wga for intrauter ine growth restriction with EFW 6.6%ile. Patient was admitted and underwent cervical ripening with misoprostol. Initial dose was 50 mcg BC, followed with 3 doses of 25 mcg. miso x4, 50 mcg x1 and 25 mcg x3. Final two doses increased to 50 mcg BC. First attempt at Lim placement was unsuccessful. Pitocin was started and reached a dose of 15 mU/min without change. Patient rested for 4 hours and then received one additional dose of miso 50 mcg. Lim balloon was then placed on 09/06/20 at 23:30. After balloon fell out, patient was again started on pitocin. Underwent artificial rupture of membranes with passage of clear fluid on 09/08/20 at 1:02 am. Multiple position changes using Spinning Babies technique. Noted to be complete at 7:00 on 09/08/20. Max dose of pitocin was 19 mU/min. GBS negative, antibiotics were not indicated. Epidural for pain management in addition to fentanyl 50 mcg IV given at time of Lim balloon placement. Cat I tracing througout stage I labor. STAGE II: Patient pushed well for 1 hour and 25 minutes to deliver a viable female from vertex presentation. Loose nuchal cord, reduced over head. delivered to maternal chest. Weight 2670 g and Apgars 8/9. Cord was clamped x2 and cut after pulsations had ceased. STAGE III: Placenta delivered at 8:34 with manual expression. It was examined and found to be intact. A small 2nd degree midline perineal laceration was noted. It was repaired with 3-0 Vicryl in the usual sterile fashion in layers. Good hemostasis was noted. EBL 150 mL.
[2020-09-08] MEDS ORDERED: LACTATED RINGERS 1,000 ML IV SCH (10:00)
[2020-09-08] MEDS: ACETAMINOPHEN 500 MG TABLET PO SCH ×2 (10:16→20:27)
[2020-09-08] MEDS: IBUPROFEN 600 MG TABLET PO SCH ×3 (10:31→22:19)
[2020-09-08] MEDS: DOCUSATE SODIUM 100 MG CAPSULE PO PRN (20:28)
[2020-09-09] MEDS: IBUPROFEN 600 MG TABLET PO SCH ×4 (04:35→22:33)
[2020-09-09] MEDS: DOCUSATE SODIUM 100 MG CAPSULE PO PRN ×2 (10:21→22:33)
--- NOTE | 2020-09-09 12:26 | PROVIDER PROGRESS NOTE ---
Subjective - Prog Note Date Prog Note Date: 09/09/20 Prog Note Time: 11:23 - Subjective Subjective: Patient is doing well. Pain well managed with ibuprofen. Up and ambulating. Tolerating po. Voiding. Having issues with and with low b lood glucose. Objective - Vital Signs/Intake & Output Vital Signs: Vital Signs x48h Temp Pulse Resp BP Pulse Ox 09/09/20 12:03 98.1 F 78 18 114/72 100 09/09/20 09:13 98.2 F 81 18 109/64 100 Intake & Output: Intake & Output 09/06/20 09/07/20 09/08/20 09/09/20 23:59 23:59 23:59 23:59 Intake Total 0045.605 1900.816 2064.517 480 Output Total 4450 700 Balance 1529.616 -373.683 3071.517 480 - Objective General Appearance: positive: No acute distress Neck: positive: Nml inspection Respiratory: positive: No respiratory distress Cardiovascular: positive: Other (RR) Abdomen: positive: Other (S&NT/BD, FF below umbi) Skin: positive: Color nml Extremities: positive: Non-tender Neurologic/Psychiatric: positive: Oriented x3 - Lab Results Fish Bones: 09/04/20 17:30 Assessment/Plan - Problem List (1) Encounter for induction of labor Impression: PPD#1: Patient is doing well Continued inpatient care for infant indications Routine pp care
[2020-09-09] MEDS: ACETAMINOPHEN 500 MG TABLET PO SCH ×2 (16:33→16:35)
[2020-09-10] MEDS: IBUPROFEN 600 MG TABLET PO SCH ×2 (04:44→10:47)
--- NOTE | 2020-09-10 09:00 | Discharge Plan ---
Discharge Plan Problem Reviewed?: Yes Disposition: 01 Home, Self Care Activity Restrictions: Additional Comments (Nothing in the vagina for 6 weeks: No intercourse, tampons, douching Call for: -Fever greater than 100.5 - Pain that does not improve with pain medication -Heavy bleeding in which you are soaking a pad an hour for 2 hours in a row -Incision becomes hot, hard, red, starts to open, or) Shower Restrictions: No (OK to shower. No tub baths for 4 weeks) Health Concerns: Rien dans le vagin pendant 6 semaines: Pas de rapports sexuels, tampons, douching Appelez pour: -Fivre suprieure 100,5 -Douleur priscila ne samliore pas avec les analgsiques -Saignements abondants dans lesquels vous trempez une serviette hyginique lheure pendant 2 heures conscutives. Ok pour se doucher. Pas de le baignoire pendant 4 semaines No Smoking: If you smoke, Please STOP! Call for help. Follow-up with: Katie Kelly MD [Provider Admit Priv/Credential] -
[2020-09-10 09:37] VITALS: BP 107/61
[2020-09-10] MEDS: DOCUSATE SODIUM 100 MG CAPSULE PO PRN (10:48)
--- NOTE | 2020-09-10 11:30 | Labor Flowsheet ---
Labor Flowsheet Datetime Report Generated by CPN: 09/10/2020 11:30 Datetime: 09/10/2020 08:51 VITAL SIGNS NBP Sys/Melia/Mean (mmHg): 107 : 61 : 73 Pulse: 70 LaborFlag: Labor Datetime: 09/10/2020 07:50 SpO2 (%): 100 Datetime: 09/08/2020 08:20 UTERINE ACTIVITY Monitor Mode: External Frequency (min): 1-3 Quality: Strong Duration (sec): 60 Pattern: Normal: <= 5 Contractions in 10 Minutes Resting Tone (Palpate): Relaxed ASSESSMENT A Monitor Mode: Telemetry FHR Baseline Rate : 150 Variability: Moderate 6-25 bpm Decelerations: None Category: Category I STAGE 2 Pushing: Urge to Push Pushing Position: Pushing Lithotomy Pushing Progress: with Pushing; Pushing Effectively with Contractions Datetime: 09/08/2020 08:05 Communication Comments: Dr Lennox at bedside Datetime: 09/08/2020 07:55 Stage 2 Comments: closed knee pushing Datetime: 09/08/2020 07:45 Comments: Dr McSorley at bedside Datetime: 09/08/2020 07:17 Nausea/Vomiting: Present Datetime: 09/08/2020 07:15 Accelerations: 10X10 Datetime: 09/08/2020 07:02 COMMUNICATION Communication: Provider at Bedside Datetime: 09/08/2020 07:00 VAGINAL EXAM Dilatation (cm): 10.0 Effacement (%): 100 Station: 1 Exam by: K. Glodowski, RN Datetime: 09/08/2020 06:43 MEDICATIONS Pitocin (milliunits): Increased to @ 19 Patient Position/Activity: Left Tilt Patient Care Comments: closed knee left side lying Datetime: 09/08/2020 06:37 Monitor Interventions for FHR: Ultrasound Adjusted Datetime: 09/08/2020 06:21 Monitor Interventions for UA: [place] Adjusted Datetime: 09/08/2020 06:20 Temperature (C): 37.3 Datetime: 09/08/2020 06:09 Provider Notified (Name): McSorely Datetime: 09/08/2020 06:03 Pain Presence: Intermittent Pain Type: Pressure Pain Relief Measures: BAGGAGE SMASHER Use Pain Coping: Sleeping Pain Assessment Comments: appears to be resting comfortable, states the pressure is not allowing he r to rest Comfort Measures: Breathing/Relaxation Datetime: 09/08/2020 06:00 Anesthesia Level Check: T10- Umbilicus Datetime: 09/08/2020 05:26 PAIN Pain Scale: 5 Datetime: 09/08/2020 05:15 Temperature Route: Oral Datetime: 09/08/2020 04:15 MATERNAL ASSESSMENT Level of Consciousness: Alert DTR's/Clonus: DTRs Absent; DTRs 2+ Headache: Denies Breath Sounds, Left: Clear and Equal Breath Sounds, Right: Clear and Equal RUQ Epigastric Pain: Denies Datetime: 09/08/2020 03:46 Analgesics/Sedatives: Benadryl (mg) @ 25 Datetime: 09/08/2020 03:44 Amniotic Fluid Color: Clear Datetime: 09/08/2020 01:41 Epidural Procedure Other: Redose Datetime: 09/08/2020 01:34 Anesthesia Comments: E. Mckeon @ bedside Datetime: 09/08/2020 01:13 Pain Location: Abdomen Datetime: 09/08/2020 01:02 Membrane Status: Ruptured Membranes Rupture Method: Artificial Amniotic Fluid Amount: Small Datetime: 09/08/2020 01:00 Resting Tone IUP (mmHg): Vibroacoustic Stim: Datetime: 09/07/2020 21:23 PATIENT CARE IV/Blood Work: New IV Bag Hung Datetime: 09/07/2020 20:35 Vaginal Exam Comments: SVE performed, unchanged Datetime: 09/07/2020 19:33 Medication Comments: pt does not want any anti nausea medication at this time Datetime: 09/07/2020 19:21 Respirations: 15 Datetime: 09/07/2020 19:00 Oxygen Method: Room Air Datetime: 09/07/2020 18:45 Contraction Comments: Poor tracing of contractions due to maternal position Datetime: 09/07/2020 17:01 Cervix, Position: Posterior Datetime: 09/07/2020 11:45 FHR Baseline Changes: Tachycardia Datetime: 09/07/2020 10:15 Vaginal Bleeding: Normal Show Cervix, Consistency: Soft Datetime: 09/07/2020 07:37 Teaching Comments: Discussed dietary change from regular diet to clear liquid diet due to epidural placement; patient and spouse verbalized understanding Datetime: 09/07/2020 06:58 Stage of : Labor Datetime: 09/07/2020 05:58 Anesthesia Interventions Other: Ephedrine Datetime: 09/07/2020 02:54 Epidural Procedure: Completed Datetime: 09/07/2020 02:17 ANESTHESIA Anesthesia Plans: Epidural Epidural Positioning: Sitting Datetime: 09/06/2020 23:03 ASSESSMENT B Monitor Mode: External US FHR Baseline Rate : 130 Variability: Minimal - Undetectable to <=5 bpm Accelerations: None Decelerations: None Category: Category II Datetime: 09/06/2020 17:39 Cervical Ripening Agents: Lim Balloon; Cytotec @ Datetime: 09/06/2020 11:54 I/O Interventions: Up to BR Datetime: 09/06/2020 07:02 Pitocin Checklist: At Least 1 Acceleration of 15 bpm x 15 Seconds in 30 Minutes or Adequate Variabi lity; No More than 1 Late Deceleration Occurred in Past 30 Minutes; No More than 2 Variable Decelerat ions > 60 Seconds in Duration and decreasing >60 bpm in 30 minutes; No More than 5 Uterine Contractio ns in 10 Minutes for any 20 Minute Interval; Uterus Palpates Soft between Contractions Datetime: 09/06/2020 02:35 Vital Sign Comments: Datetime: 09/06/2020 01:27 Pain Goal: 5 Datetime: 09/05/2020 22:00 TEACHING Instructional Method: Demo; Verbal; Family/Support Person Instructed; Verbalized Understanding Plan of Care: Plan of Care Discussed; Labor; Induction Labor/Induction: Cervical Ripening; Induction (Annotations: Lim bulb/Cook's Catheter procedure explained to both patient and . ) Pain Management: IV Narcotics (Annotations: Will medicate with fentanyl prior to procedure. ) Medications: IV Narcotics; Cervical Ripening Datetime: 09/05/2020 21:53 Provider Reviewed Strip: Yes Notification Reason: Status Update; Labor Status; Uterine Activity Datetime: 09/05/2020 19:55 Unit Routine: Unit Personnel Datetime: 09/05/2020 15:29 Hygiene: Shower Datetime: 09/05/2020 06:25 Maternal Comments: Sitting up to eat Datetime: 09/04/2020 20:25 Actions for Decelerations: Other (Annotations: Pt returned to sitting on bed, then asked to r eposition to LLP)
--- NOTE | 2020-09-14 22:06 | DISCHARGE SUMMARY ---
"Discharge Summary Admit Date: 09/04/20 Discharge Date: 09/10/20 Discharging Provider: Leticia Discharge Disposition: 01 Home, Self Care - DIAGNOSES Admission Diagnoses: IUP at 38+0 wga growth restriction Cypriot speaking only Discharge Diagnoses with Status of Each Condition: Same and delivery of term gestation - HPI History of Present Illness: Patient is a 25 yo admitted at 38+0 wga for induction of labor. Patient was a transfer of care from the [facility] at approximately 34 wga. She moved to the from [facility], about 8 months ago. Cypriot speaking with minimal Nigerien competency. was generally uncomplicated other than positive CT in early and BV in later , both treated with CT with a negative test of cure. At her 36 weeks visit, she was measuring S<D. Formal US was obtained and growth was noted to be 6.5%ile. As such, she presented for induction of labor for growth restriction. PMH: none PSH: none Initial U/S: at 10.5wks c/w LMP for BENY 09/18/20 O pos/Rubella immune VZV non-immune - CONSULTS | PROCEDURES Procedures: Epidural Vaginal delivery - HOSPITAL COURSE Hospital Course: STAGE I: Patient is a 25 yo admitted on 09/04/20 at 38+0 wga for intrauterine growth restriction with EFW 6.6%ile. Patient was admitted and underwent cervical ripening with misoprostol. Initial dose was 50 mcg BC, follow ed with 3 doses of 25 mcg. miso x4, 50 mcg x1 and 25 mcg x3. Final two doses increased to 50 mcg BC. First attempt at Lim placement was unsuccessful. Pitocin was started and reached a dose of 15 mU/min without change. Patient rested for 4 hours and then received one additional dose of miso 50 mcg. Lim balloon was then placed on 09/06/20 at 23:30. After balloon fell out, patient was again started on pitocin. Underwent artificial rupture of membranes with passage of clear fluid on 09/08/20 at 1:02 am. Multiple position changes using Spinning Babies technique. Noted to be complete at 7:00 on 09/08/20. GBS negative, antibiotics were not indicated. Epidural for pain management in addition to f entanyl 50 mcg IV given at time of Lim balloon placement. Cat I tracing througout stage I labor. STAGE II: Patient pushed well for 1 hour and 25 minutes to deliver a viable female infant from vertex presentation. Loose nuchal cord, reduced over head. delivered to maternal chest. Weight 2670 g and Apgars 8/9. Cord was clamped x2 and cut after pulsations had ceased. STAGE III: Placenta delivered at 8:34 with manual expression. It was examined and found to be intact. A small 2nd degree midline perineal laceration was noted. It was repaired with 3-0 Vicryl in the usual sterile fashion in layers. Good hemostasis was noted. EBL 150 mL. On PPD#1, was observed for hypoglycemia. By PPD#2, both patient and baby were meeting goals for discharge. Patient was discharged to home. - ALLERGIES Allergies/Adverse Reactions: Allergies Allergy/AdvReac Type Severity Reaction Status Date / Time No Known Drug Allergies Allergy Unverified 01/25/20 14:02 - MEDICATIONS Home Medications: Ambulatory Orders Medication Instructions Recorded Confirmed Metoclopramide [Reglan] 10 mg PO Q6H PRN #20 tablet 01/25/20 09/09/20 Nitrofurantoin Monohyd/M-Cryst 100 mg PO BID #10 capsule 01/25/20 09/09/20 [Macrobid 100 mg Capsule] Pnv No.121/Iron/Folic Acid 1 tab PO DAILY 09/09/20 09/09/20 [ Multivitamin Tablet] - PHYSICAL EXAM AT DISCHARGE General Appearance: positive: No acute distress Neck: positive: Nml inspection Respiratory: positive: No respiratory distress, Breath sounds nml Cardiovascular: positive: Regular rate & rhythm Peripheral Pulses: positive: 2+ Abdomen: positive: Non-tender, Other (FF below umni) Skin: positive: Color nml, No rash, Warm, Dry Extremities: positive: Non-tender, No pedal edema Neurologic/Psychiatric: positive: Mood/affect nml - LABS Result Diagrams: 09/04/20 17:30 - FOLLOW UP Follow Up: [address] Kelly - TIME SPENT Time Spent in Discharge (Minutes): 30"
== END 2020-09-10 11:15 | disposition home or self-care (01) | DRG 807 ==
LOC: WFO 16:45 → FBP 16:51 → WFO 17:20 → FBP 17:21 → OBSVTOIN 18:20
PROVIDERS: ADMIT Obstetrics & Gynecology; ATTEND Obstetrics & Gynecology
PROC: 0U7C7ZZ Dilation of Cervix, Via Natural or Artificial Opening (ICD-10-PCS; 2020-09-06)
PROC: 10E0XZZ Delivery of Products of Conception, External Approach (ICD-10-PCS; principal; 2020-09-08)
PROC: 0KQM0ZZ Repair Perineum Muscle, Open Approach (ICD-10-PCS; 2020-09-08)
PROC: 10907ZC Drainage of Amniotic Fluid, Therapeutic from Products of Conception, Via Natural or Artificial Opening (ICD-10-PCS; 2020-09-08)
DX: O36.5930 Maternal care for other known or suspected poor fetal growth, third trimester, not applicable or unspecified (principal); Z37.0 Single live birth; O69.81X0 Labor and delivery complicated by cord around neck, without compression, not applicable or unspecified; O70.1 Second degree perineal laceration during delivery; Z3A.38 38 weeks gestation of pregnancy; Z86.11 Personal history of tuberculosis; Z20.822 Contact with and (suspected) exposure to COVID-19
CPT/HCPCS: 36415; 85025; 86850; 86900; 86901; 87635; A9270; G0378; J1200; J7120; 81599

== ENCOUNTER 2020-12-15 07:31 | Emergency (ER) | payer OTHER ==
[2020-12-15] MEDS ORDERED: SODIUM CHLORIDE 0.9% 1,000 ML IV STA (07:42)
[2020-12-15] MEDS ORDERED: ONDANSETRON 4 MG/2 ML VIAL IVP STA ×2 (07:42→07:59)
--- OUTSIDE RECORDS SUMMARY | 2020-12-15 07:44 | EXTERNAL MEDICAL SUMMARY RPT | Continuity of Care Document ---
:1995 Demographics Phone Unavailable Preferred Language Unknown Marital Status Unknown Protestant Affiliation Unknown Race Unknown Ethnic Group Unknown Author Organization [place] Address [address] [id number] Phone Allergies Encounters Medications Problems Results
[2020-12-15] MEDS ORDERED: MECLIZINE 12.5 MG TABLET PO STA (07:59)
--- NOTE | 2020-12-15 08:02 | ED Physician Documentation ---
History of Present Illness - Stated complaint Stated Complaint: DIZZY - Chief complaint Chief Complaint: Neuro - History obtained from History obtained from: Patient, Family - Additonal information Additional information: Patient comes emergency department chief complaint of fatigue, dizziness which she clarifies to be a spinning sensation, and nausea for the last 4 days. Patient states she does not have any pain in her abdomen but has a general sense of vague discomfort. No dysuria. No fever or chills. No cough or shortness of breath. No known medical problems. Patient has a 3-month-old daughter and denies any history of depression. No depressed symptoms currently. No recent head injury. No visual changes or other neurologic deficits. No other complaints at this time. Review of Systems Ten Systems: 10 systems reviewed and negative Constitutional: reports: Fatigue. denies: Fever, Chills Eyes: reports: Reviewed and negative Ears: reports: Reviewed and negative Nose: reports: Reviewed and negative Throat: reports: Reviewed and negative Cardiac: reports: Reviewed and negative Respiratory: reports: Reviewed and negative GI: reports: Nausea. 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 Psych: None Musculoskeletal: None Derm: None - Past Surgical History Past Surgical History: No - Present Medications Home Medications: Ambulatory Orders Medication Instructions Recorded Confirmed Meclizine [Antivert] 25 mg PO Q6H #10 tablet 12/15/20 Ondansetron Odt [Zofran] 4 mg TL Q6H PRN #10 tablet 12/15/20 - Allergies Allergies/Adverse Reactions: Allergies Allergy/AdvReac Type Severity Reaction Status Date / Time No Known Drug Allergies Allergy Unverified 01/25/20 14:02 - Social History Does the pt smoke?: No Smoking Status: Never smoker Does the pt drink ETOH?: No Does the pt have substance abuse?: No - Immunizations Immunizations are current?: Yes - POLST Patient has POLST: No PD ED PE NORMAL - Vitals Vital signs reviewed: Yes - General General: Alert and oriented X 3, No acute distress - HEENT HEENT: Atraumatic, PERRL, EOMI, Moist mucous membranes - Neck Neck: Supple, no meningeal sign, Thyroid normal - Cardiac Cardiac: RRR, No murmur, Strong equal pulses - Respiratory Respiratory: No respiratory distress, Clear bilaterally - Abdomen Abdomen: Soft, Non tender, Non distended - Derm Derm: Normal color, Warm and dry, No rash - Extremities Extremities: No deformity, No edema, No calf tenderness / cord - Neuro Neuro: Alert and oriented X 3, mathematician 2-12 intact, Normal speech - Psych Psych: Normal mood, Normal affect Results - Vitals Vitals: Vital Signs - 24 hr 12/15/20 12/15/20 07:35 08:33 Temperature 36.6 C Heart Rate 68 68 Respiratory 18 16 Rate Blood Pressure 127/71 112/66 O2 Saturation 100 100 Oxygen O2 Source Room air - EKG (time done) 0759 Rate: Rate (enter#) (76) Rhythm: NSR [place]: Normal Intervals: Normal ME QRS: Normal Ischemia: Normal ST segments. No: T wave inversion Compare to prior EKG: Old EKG unavailable Computer interpretation: Agree with computer - Labs Labs: Laboratory Tests 12/15/20 12/15/20 12/15/20 08:10 08:10 08:10 WBC 3.4 L RBC 4.12 L Hgb 12.6 Hct 37.9 MCV 92.0 MCH 30.6 MCHC 33.2 RDW 11.9 L Plt Count 194 MPV 9.5 Neut # (Auto) 1.3 L Lymph # (Auto) 1.8 [place] # (Auto) 0.3 Eos # (Auto) 0.1 Baso # (Auto) 0.0 Absolute Nucleated RBC 0.00 Nucleated RBC % 0.0 Sodium 137 Potassium 3.9 Chloride 105 Carbon Dioxide 24 Anion Gap 8.0 BUN 18 Creatinine 0.7 Estimated GFR (MDRD) 123 Glucose 85 Calcium 9.3 Total Bilirubin 0.7 AST 24 ALT 42 Alkaline Phosphatase 63 Total Protein 7.5 Albumin 4.2 Globulin 3.3 Albumin/Globulin Ratio 1.3 Lipase 34 TSH 3.43 Urine Color Urine Clarity Urine pH Ur Specific [place] Urine Protein Urine Glucose (UA) Urine Ketones Urine Occult Blood Urine Nitrite Urine Bilirubin Urine Urobilinogen Ur Leukocyte Esterase Ur Microscopic Review Urine Culture Comments Urine HCG, Qual 12/15/20 08:30 WBC RBC Hgb Hct MCV MCH MCHC RDW Plt Count MPV Neut # (Auto) Lymph # (Auto) [place] # (Auto) Eos # (Auto) Baso # (Auto) Absolute Nucleated RBC Nucleated RBC % Sodium Potassium Chloride Carbon Dioxide Anion Gap BUN Creatinine Estimated GFR (MDRD) Glucose Calcium Total Bilirubin AST ALT Alkaline Phosphatase Total Protein Albumin Globulin Albumin/Globulin Ratio Lipase TSH Urine Color YELLOW Urine Clarity CLEAR Urine pH 7.5 Ur Specific [place] 1.020 Urine Protein NEGATIVE Urine Glucose (UA) NEGATIVE Urine Ketones NEGATIVE Urine Occult Blood NEGATIVE Urine Nitrite NEGATIVE Urine Bilirubin NEGATIVE Urine Urobilinogen 0.2 (NORMAL) Ur Leukocyte Esterase NEGATIVE Ur Microscopic Review NOT INDICATED Urine Culture Comments NOT INDICATED Urine HCG, Qual NEGATIVE PD MEDICAL DECISION MAKING - ED course Complexity details: reviewed results, re-evaluated patient, considered differential, d/w patient ED course: Patient was worked up with labs, EKG, urinalysis, and test and treated symptomatically with IV fluids, Zofran, and meclizine. Patient was feeling little better on reevaluation. Her work-up was entirely negative. We have discussed possible reasons for the patient's symptoms as well as home management. We have also discussed the usual indications for return. Departure - Departure Disposition: Home, Self Care Clinical Impression: Dizziness Fatigue Qualifiers: Fatigue type: unspecified Qualified Code(s): R53.83 - Other fatigue Headache Qualifiers: Headache type: tension-type Headache chronicity pattern: acute headache Intractability: not intractable Qualified Code(s): G44.209 - Tension-type headache, unspecified, not intractable Condition: Stable Instructions: ED Dizziness UKO, ED Headache Tension, Fatigue Manage Prescriptions: Meclizine [Antivert] 25 mg PO Q6H #10 tablet Ondansetron Odt [Zofran] 4 mg TL Q6H PRN #10 tablet PRN Reason: Nausea / Vomiting Comments: Your laboratory studies look fantastic. Your red blood cell count is normal, and your thyroid function is also normal. There are no abnormalities of your electrolytes, including sodium and potassium. Your urinalysis is also unremarkable and your EKG looks good. It is possible that you have picked up a viral illness that is causing you to feel the symptoms. It is also possible that having not slept well recently plus with the physical exhaustion of having a new baby, you are just in need of better rest. Please continue to drink plenty of fluids. You may take the nausea and dizziness medications as needed. Your test is negative today. Please follow-up with your primary doctor if you are not feeling better by the end of next weekend.
[2020-12-15 08:16] LABS: BASOPHILS % (AUTO) 0.3 %; EOSINOPHILS # (AUTO) 0.1 10^3/uL (0.0-0.7); EOSINOPHILS % (AUTO) 2.4 %; HCT - HEMATOCRIT 37.9 % (37.0-47.0); HGB - HEMOGLOBIN 12.6 g/dL (12.0-16.0); LYMPHOCYTES # (AUTO) 1.8 10^3/uL (1.5-3.5); LYMPHOCYTES % (AUTO) 52.6 %; MEAN CORPUSCULAR HEMOGLOBIN 30.6 pg (27.0-31.0); MEAN CORPUSCULAR HGB CONC 33.2 g/dL (32.0-36.0); MEAN PLATELET VOLUME 9.5 fL (7.9-10.8); MONOCYTES # (AUTO) 0.3 10^3/uL (0.0-1.0); MONOCYTES % (AUTO) 7.9 %; NEUTROPHILS # (AUTO) 1.3 10^3/uL (1.5-6.6); NEUTROPHILS % (AUTO) 36.8 %; PLT - PLATELET COUNT 194 10^3/uL (130-450); RED BLOOD COUNT 4.12 10^6/uL (4.20-5.40); RED CELL DISTRIBUTION WIDTH 11.9 % (12.0-15.0); WHITE BLOOD COUNT 3.4 x10^3/uL (4.8-10.8)
[2020-12-15 08:39] LABS: BILIRUBIN,URINE NEGATIVE (NEGATIVE); GLUCOSE, URINE (UA) NEGATIVE (NEGATIVE); KETONES,URINE (UA) NEGATIVE (NEGATIVE); LEUKOCYTE ESTERASE, URINE NEGATIVE (NEGATIVE); NITRITE,URINE NEGATIVE (NEGATIVE); OCCULT BLOOD,URINE NEGATIVE (NEGATIVE); PH,URINE 7.5 PH (5.0-7.5); PROTEIN,URINE NEGATIVE (NEGATIVE); UROBILINOGEN,URINE 0.2 (NORMAL) E.U./dL (NORMAL)
[2020-12-15 08:43] LABS: CLARITY,URINE CLEAR (CLEAR)
[2020-12-15 08:44] LABS: ALBUMIN 4.2 g/dL (3.2-5.5); ALBUMIN/GLOBULIN RATIO 1.3 (1.0-2.2); BILIRUBIN,TOTAL 0.7 mg/dL (0.2-1.0); CALCIUM 9.3 mg/dL (8.5-10.3); CREATININE 0.7 mg/dL (0.4-1.0); POTASSIUM 3.9 mmol/L (3.5-5.0); TOTAL PROTEIN 7.5 g/dL (6.7-8.2)
[2020-12-15 08:44] LABS: HCG UR QUAL NEGATIVE
[2020-12-15 09:27] VITALS: BP 115/77
== END 2020-12-15 09:30 | disposition home or self-care (01) ==
LOC: ED 07:31
DX: R42 Dizziness and giddiness (principal); R53.83 Other fatigue; G44.209 Tension-type headache, unspecified, not intractable
CPT/HCPCS: 36415; 80053; 81003; 81025; 83690; 84443; 85025; 93005; 96361; 96374; 99283; A9270; 81001; 87086

== ENCOUNTER 2022-05-23 11:20 | Emergency (ER) | payer OTHER ==
[2022-05-23 11:28] VITALS: BP 118/76
[2022-05-23 11:41] LABS: BASOPHILS % (AUTO) 0.6 %; EOSINOPHILS # (AUTO) 0.1 10^3/uL (0.0-0.7); EOSINOPHILS % (AUTO) 1.8 %; HCT - HEMATOCRIT 35.2 % (37.0-47.0); HGB - HEMOGLOBIN 11.6 g/dL (12.0-16.0); LYMPHOCYTES # (AUTO) 1.2 10^3/uL (1.5-3.5); LYMPHOCYTES % (AUTO) 35.7 %; MEAN CORPUSCULAR HEMOGLOBIN 29.6 pg (27.0-31.0); MEAN CORPUSCULAR VOLUME 89.8 fL (81.0-99.0); MEAN PLATELET VOLUME 9.4 fL (7.9-10.8); MONOCYTES # (AUTO) 0.3 10^3/uL (0.0-1.0); NEUTROPHILS # (AUTO) 1.8 10^3/uL (1.5-6.6); NEUTROPHILS % (AUTO) 51.6 %; PLT - PLATELET COUNT 223 10^3/uL (130-450); RED BLOOD COUNT 3.92 10^6/uL (4.20-5.40); RED CELL DISTRIBUTION WIDTH 13.1 % (12.0-15.0); WHITE BLOOD COUNT 3.4 x10^3/uL (4.8-10.8)
[2022-05-23 11:55] LABS: ALBUMIN 4.1 g/dL (3.2-5.5); ALBUMIN/GLOBULIN RATIO 1.2 (1.0-2.2); BILIRUBIN,TOTAL 0.4 mg/dL (0.2-1.0); CALCIUM 9.5 mg/dL (8.5-10.3); CREATININE 0.5 mg/dL (0.4-1.0); POTASSIUM 3.7 mmol/L (3.5-5.0); TOTAL PROTEIN 7.5 g/dL (6.7-8.2)
[2022-05-23 12:23] LABS: HCG UR QUAL POSITIVE
--- NOTE | 2022-05-23 15:49 | Ultrasound Report ---
PROCEDURE: OB First Trimester w/TV INDICATIONS: Abdominal pain in OUTSIDE/PRIOR DATING DATA: Last menstrual period (LMP): 03/25/2022. LMP-based estimated date of delivery (BENY): 12/30/2022. First dating scan (date and location): 05/23/2022. Estimated date of delivery (BENY) from first dating scan: 01/04/2023. TECHNIQUE: Real-time scanning was performed of the fetus and maternal pelvic organs, with image documentation. Endovaginal scanning was also performed to better visualize the fetus and maternal ovaries. COMPARISON: None FINDINGS: Embryo: [place]-rump length measures 1.4 cm, corresponding with a 7 week 5 day gestation. Normal-appea ring yolk sac Heart rate: 155 bpm Measurement variability in dating: +/- 4 weeks by LMP, +/- 7 days by mean sac diameter (use before 6 weeks gestation if crown-rump length not able to be measured), +/- 5 days by crown-rump length (6-12 weeks gestation). Maternal organs: Ovaries show right ovarian corpus luteum cyst measuring 2.1 x 1.7 cm. Left ovary un remarkable IMPRESSION: Single live intrauterine corresponds with a 7 week 5 day gestation Reviewed by: Stanley Oswald MD on 05/23/2022 2:48 PM AKST Approved by: Stanley Oswald MD on 05/23/2022 2:48 PM AKST Station ID: [id number]
--- NOTE | 2022-05-23 16:12 | ED Physician Documentation ---
History of Present Illness - Stated complaint Stated Complaint: LOW ABD PX - Chief complaint Chief Complaint: Abd Pain - Additonal information Additional information: Lower abdominal pain. G2, P1, endorsing for lower abdominal pain, with ass ociated nausea and vomiting x2 weeks. Denies dysuria or vaginal discharge but reports vaginal spotting approximately 4 days ago. Blood type O+. 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 : None Psych: None Musculoskeletal: None Derm: None - Past Surgical History Past Surgical History: No - Present Medications Home Medications: Ambulatory Orders Medication Instructions Recorded Confirmed Folic Acid 1 mg PO DAILY 05/23/22 05/23/22 Ondansetron Odt [Zofran Odt] 4 mg TL Q6H PRN #10 tablet 05/23/22 Pnv No.95/Ferrous Fum/Folic AC 1 each PO DAILY #90 tablet 05/23/22 [ Caplet] - Allergies Allergies/Adverse Reactions: Allergies Allergy/AdvReac Type Severity Reaction Status Date / Time No Known Drug Allergies Allergy Verified 05/23/22 11:28 - Social History Does the pt smoke?: No Smoking Status: Never smoker Does the pt drink ETOH?: No Does the pt have substance abuse?: No - Immunizations Immunizations are current?: Yes - POLST Patient has POLST: No PD ED PE NORMAL - General General: Alert and oriented X 3, No acute distress, Well developed/nourished - HEENT HEENT: Atraumatic, PERRL, EOMI, Ears normal, Moist mucous membranes, Pharynx benign - Neck Neck: Supple, no meningeal sign, No bony TTP, No adenopathy - Cardiac Cardiac: RRR, No murmur, No gallop, Strong equal pulses - Respiratory Respiratory: No respiratory distress, Clear bilaterally - Abdomen Abdomen: Normal bowel sounds, Non tender - Female Female : Deferred - Rectal Rectal: Deferred - Back Back: No CVA TTP Results - Vitals Vitals: Vital Signs - 24 hr 05/23/22 11:24 Temperature 36.9 C Heart Rate 76 Respiratory 18 Rate Blood Pressure 118/76 O2 Saturation 100 Oxygen O2 Source Room air - Labs Labs: Laboratory Tests 05/23/22 05/23/22 05/23/22 11:31 11:37 11:37 WBC 3.4 L RBC 3.92 L Hgb 11.6 L Hct 35.2 L MCV 89.8 MCH 29.6 MCHC 33.0 RDW 13.1 Plt Count 223 MPV 9.4 Neut # (Auto) 1.8 Lymph # (Auto) 1.2 L [place] # (Auto) 0.3 Eos # (Auto) 0.1 Baso # (Auto) 0.0 Absolute Nucleated RBC 0.00 Nucleated RBC % 0.0 Sodium 133 L Potassium 3.7 Chloride 101 Carbon Dioxide 24 Anion Gap 8.0 BUN 6 Creatinine 0.5 Estimated GFR (MDRD) 178 Glucose 80 Calcium 9.5 Total Bilirubin 0.4 AST 15 ALT 14 Alkaline Phosphatase 39 L Total Protein 7.5 Albumin 4.1 Globulin 3.4 Albumin/Globulin Ratio 1.2 Lipase 34 HCG, Quant Urine HCG, Qual POSITIVE Blood Type 05/23/22 05/23/22 11:37 11:37 WBC RBC Hgb Hct MCV MCH MCHC RDW Plt Count MPV Neut # (Auto) Lymph # (Auto) [place] # (Auto) Eos # (Auto) Baso # (Auto) Absolute Nucleated RBC Nucleated RBC % Sodium Potassium Chloride Carbon Dioxide Anion Gap BUN Creatinine Estimated GFR (MDRD) Glucose Calcium Total Bilirubin AST ALT Alkaline Phosphatase Total Protein Albumin Globulin Albumin/Globulin Ratio Lipase HCG, Quant 286719.00 Urine HCG, Qual Blood Type O POSITIVE PD MEDICAL DECISION MAKING - ED course Complexity details: reviewed results, d/w patient ED course: Patient 27-year-old female, G2, P1. Presenting with lower abdominal pain and vaginal spotting. O+ per chart review. Labs obtained demonstrated a stable leukopenia Unchanged from baseline. No significant electrolyte abnormality. Abdominal exam benign. Ultrasonography demonstrates single intrauterine approximately 7 weeks and 5 days. Pt reported nausea ongoing for several weeks. Labs and abdominal exam benign. Patient requested discharge before urine studied could be completed. Was provided with vitamin and zofran as well as contact information for her OBGYN. Clear return precautions given. Departure - Departure Disposition: 01 Home, Self Care Clinical Impression: Lower abdominal pain, Follow-Up: Katie Kelly MD [Provider Admit Priv/Credential] - Prescriptions: Pnv No.95/Ferrous Fum/Folic AC [ Caplet] 1 each PO DAILY #90 tablet Ondansetron Odt [Zofran Odt] 4 mg TL Q6H PRN #10 tablet PRN Reason: Nausea / Vomiting Comments: Thank you for allowing us to care for you today [facility]. Prescription sent to [facility] in [place] You are choosing to leave the emergency department before you have had an opportunity to complete her evaluation however all the testing that we were able to perform including the blood work and the ultrasound were reassuring. As we discussed I will be discharging you with some medication to help with any ongoing nausea. I would like you to contact your primary care doctor. I have also included contactContact information for Dr. Kelly, The freelance operator who helped to 3 her first . Please give them a call first and tomorrow. If it anytime you have new or worsening symptoms please return. Forms: Activity restrictions Discharge Date/Time: 05/23/22 17:39
[2022-05-23] MEDS ORDERED: SODIUM CHLORIDE 0.9% 1,000 ML IV STA (16:25)
== END 2022-05-23 17:39 | disposition home or self-care (01) ==
LOC: ED 11:20
DX: O26.891 Other specified pregnancy related conditions, first trimester (principal); R10.30 Lower abdominal pain, unspecified
CPT/HCPCS: 36415; 80053; 81001; 81003; 81025; 83690; 84702; 85025; 86900; 86901; 87086; 96360; 99283

== ENCOUNTER 2022-06-06 14:00 | Outpatient (CLI) | payer OTHER ==
[2022-06-07 12:53] LABS: BILIRUBIN,URINE NEGATIVE (NEGATIVE); GLUCOSE, URINE (UA) NEGATIVE (NEGATIVE); KETONES,URINE (UA) NEGATIVE (NEGATIVE); LEUKOCYTE ESTERASE, URINE LARGE (NEGATIVE); NITRITE,URINE NEGATIVE (NEGATIVE); OCCULT BLOOD,URINE NEGATIVE (NEGATIVE); PROTEIN,URINE NEGATIVE (NEGATIVE); UROBILINOGEN,URINE 0.2 (NORMAL) E.U./dL (NORMAL)
[2022-06-07 12:54] LABS: CLARITY,URINE SL. CLOUDY (CLEAR)
[2022-06-07 13:16] LABS: BACTERIA,URINE Many /HPF (None Seen); RBC,URINE None Seen /HPF (0-5); SQUAMOUS EPITHELIAL CELL,UR MANY Squamous (<= Few); WBC,URINE >25 /HPF (0-5)
== END 2022-06-06 23:59 | disposition home or self-care (01) ==
LOC: LAB.R 14:00
PROVIDERS: ATTEND Obstetrics & Gynecology
DX: Z34.90 Encounter for supervision of normal pregnancy, unspecified, unspecified trimester (principal)
CPT/HCPCS: 81001; 87077; 87086; 87181

== ENCOUNTER 2022-06-21 06:55 | Outpatient (CLI) | payer OTHER ==
--- NOTE | 2022-06-21 15:18 | Ultrasound Report ---
PROCEDURE: OB First Trimester INDICATIONS: POSITIVE TEST OUTSIDE/PRIOR DATING DATA: Last menstrual period (LMP): 03/25/2022. LMP-based estimated date of delivery (BENY): 12/30/2022. First dating scan (date and location): 05/23/2022. Estimated date of delivery (BENY) from first dating scan: 01/04/2023. The below data below was generated using the ultrasound BENY of 01/04/2023 TECHNIQUE: Real-time scanning was performed of the fetus and maternal pelvic organs, with image documentation. COMPARISON: 05/23/2022. FINDINGS: Single living intrauterine conceptus with a mean gestational sac diameter of 5.7 cm. Withi n the gestational sac there is a fetus with crown-rump length of 5.8 cm. Estimated gestational age is 12 weeks 2 days. heart rate is 162 bpm. Right corpus luteum cyst noted. Ovaries otherwise norm al. IMPRESSION: Single living intrauterine gestation with estimated gestational age 12 weeks 2 days. Reviewed by: Anurag Cadena MD on 06/21/2022 2:16 PM AK Approved by: Anurag Cadena MD on 06/21/2022 2:16 PM AK Station ID: [id number]
== END 2022-06-21 06:56 | disposition home or self-care (01) ==
LOC: DI 06:55
PROVIDERS: ATTEND Obstetrics & Gynecology
DX: Z34.91 Encounter for supervision of normal pregnancy, unspecified, first trimester (principal); Z3A.12 12 weeks gestation of pregnancy

== ENCOUNTER 2022-06-24 08:00 | Outpatient (CLI) | payer OTHER ==
[2022-06-24 17:05] LABS: BILIRUBIN,URINE NEGATIVE (NEGATIVE); GLUCOSE, URINE (UA) NEGATIVE (NEGATIVE); KETONES,URINE (UA) NEGATIVE (NEGATIVE); LEUKOCYTE ESTERASE, URINE NEGATIVE (NEGATIVE); NITRITE,URINE NEGATIVE (NEGATIVE); OCCULT BLOOD,URINE NEGATIVE (NEGATIVE); PROTEIN,URINE NEGATIVE (NEGATIVE); UROBILINOGEN,URINE 0.2 (NORMAL) E.U./dL (NORMAL)
[2022-06-24 17:07] LABS: CLARITY,URINE HAZY (CLEAR)
[2022-06-24 17:11] LABS: BACTERIA,URINE Few /HPF (None Seen); RBC,URINE 0-5 /HPF (0-5); SQUAMOUS EPITHELIAL CELL,UR MOD Squamous (<= Few); WBC,URINE 0-3 /HPF (0-5)
[2022-06-24 17:12] LABS: MUCUS,URINE Moderate Strands
[2022-06-25 04:51] LABS: CHLAMYDIA TRACHOMATIS DNA NEGATIVE (NEGATIVE); NEISSERIA GONORRHOEAE DNA NEGATIVE (NEGATIVE); TRICHOMONAS VAGINALIS DNA NEGATIVE (NEGATIVE)
== END 2022-06-24 23:59 | disposition home or self-care (01) ==
LOC: LAB 08:00
PROVIDERS: ATTEND Obstetrics & Gynecology
DX: Z34.90 Encounter for supervision of normal pregnancy, unspecified, unspecified trimester (principal)
CPT/HCPCS: 81001; 87086; 87491; 87591; 87661

== ENCOUNTER 2022-06-24 12:22 | Outpatient (CLI) | payer OTHER ==
[2022-06-24 12:42] LABS: BASOPHILS % (AUTO) 0.2 %; EOSINOPHILS # (AUTO) 0.1 10^3/uL (0.0-0.7); EOSINOPHILS % (AUTO) 1.1 %; HCT - HEMATOCRIT 35.3 % (37.0-47.0); HGB - HEMOGLOBIN 11.9 g/dL (12.0-16.0); LYMPHOCYTES # (AUTO) 1.3 10^3/uL (1.5-3.5); LYMPHOCYTES % (AUTO) 30.3 %; MEAN CORPUSCULAR HEMOGLOBIN 30.1 pg (27.0-31.0); MEAN CORPUSCULAR HGB CONC 33.7 g/dL (32.0-36.0); MEAN CORPUSCULAR VOLUME 89.4 fL (81.0-99.0); MEAN PLATELET VOLUME 9.2 fL (7.9-10.8); MONOCYTES # (AUTO) 0.3 10^3/uL (0.0-1.0); MONOCYTES % (AUTO) 7.5 %; NEUTROPHILS # (AUTO) 2.7 10^3/uL (1.5-6.6); NEUTROPHILS % (AUTO) 60.4 %; PLT - PLATELET COUNT 221 10^3/uL (130-450); RED BLOOD COUNT 3.95 10^6/uL (4.20-5.40); RED CELL DISTRIBUTION WIDTH 13.2 % (12.0-15.0); WHITE BLOOD COUNT 4.4 x10^3/uL (4.8-10.8)
[2022-06-25 04:08] LABS: RPR Non Reactive (Non Reactive)
[2022-06-25 06:09] LABS: HBsAG SCREEN Negative (Negative); HCV AB 0.1 s/co ratio (0.0-0.9)
[2022-06-25 08:09] LABS: HIV SCREEN 4TH GENERATION Non Reactive (Non Reactive); VARICELLA-ZOSTER AB IGG <135 index (Immune >165)
== END 2022-06-24 12:23 | disposition home or self-care (01) ==
LOC: LAB 12:22
PROVIDERS: ATTEND Obstetrics & Gynecology
DX: Z34.90 Encounter for supervision of normal pregnancy, unspecified, unspecified trimester (principal)
CPT/HCPCS: 36415; 85025; 86592; 86762; 86787; 86803; 86850; 86900; 86901; 87340; 87389

== ENCOUNTER 2022-07-25 11:43 | Outpatient (CLI) | payer OTHER ==
[2022-07-27 21:07] LABS: AFP MOM 1.27 (.); AFP VALUE 55.3 ng/mL (.); DIA MOM 1.49 (.); DSR (BY AGE) 1 IN 797 (.); DSR (SECOND TRIMESTER) 1 IN 2262 (.); GEST. AGE ON COLLECTION DATE 17.4 WEEKS (.); HCG MOM 1.96 (.); HCG VALUE 61457 mIU/mL (.); INSULIN DEP DIABETES No (.); MATERNAL AGE AT EDD 28.8 yr (.); MULTIPLE GESTATION No (.); OPEN SPINA BIFIDA RISK 1 IN 10000 (.); RACE Black (.); RESULTS Report (.); TEST RESULTS *Screen Negative* (.); TRISOMY 18 RISK Not increased (.); UE3 MOM 0.87 (.); UE3 VALUE 1.11 ng/mL (.); WEIGHT 165 lbs (.)
== END 2022-07-25 11:44 | disposition home or self-care (01) ==
LOC: LAB 11:43
PROVIDERS: ATTEND Obstetrics & Gynecology
DX: Z34.90 Encounter for supervision of normal pregnancy, unspecified, unspecified trimester (principal)
CPT/HCPCS: 36415; 81511

== ENCOUNTER 2022-08-22 20:34 | Outpatient (CLI) | payer OTHER ==
--- NOTE | 2022-08-23 17:06 | Ultrasound Report ---
PROCEDURE: OB Detailed Eval INDICATIONS: SUPERVISION OF OUTSIDE/PRIOR DATING DATA: Last menstrual period (LMP): 03/25/2022. LMP-based estimated date of delivery (BENY): 12/30/2022. First dating scan (date and location): 05/23/2022. Estimated date of delivery (BENY) from first dating scan: 01/04/2023. The below data below was generated using the study generated BENY of 01/04/2023 TECHNIQUE: Real-time scanning was performed of the fetus, with image documentation and biometric measurements. Endovaginal scanning: Not indicated COMPARISON: 05/23/2022, 06/21/2022 FINDINGS: General: A single living intrauterine gestation is present. Presentation: Variable Placenta: Placental position is anterior, without previa. Amniotic fluid index: 11.5 cm, normal for gestational age. heart rate: 155 beats per minute. Maternal cervical canal: 4.7 cm long; normal length is 2.5 cm or more. biometrics: Biparietal diameter: 5.16 cm, 21 weeks, 5 days. Head circumference: 19.49 cm, 21 weeks, 5 days. Abdominal circumference: 16.5 cm, 21 weeks, 4 days. Femur length: 3.39 cm, 20 weeks, 5 days. Estimated gestational age from initial scan: 20 weeks, 5 days. Composite gestational age from present scan: 21 weeks, 2 days Estimated weight and percentile: 407.8 g, 72.9% Measurement variability in biometric dating: +/- 10 days from 12-20 weeks gestation, +/- 2 weeks from 20-30 weeks gestation, +/- 3 weeks at 30 weeks gestation or later. Anatomic survey: Neuro: Ventricles are normal at less than 10 mm. Cisterna magna is normal at 3-11 mm. Cerebellum i s normal in size and morphology. Nuchal skin fold: Normal at less than 6 mm between 14 and 20 weeks gestational age. Face: Nose and lips, facial profile are not well seen due to position. Spine: No evidence for spina bifida. Heart: 4-chambered heart is present, with normal ventricular outflow tracts. Diaphragm: Diaphragm is not well seen due to position. Stomach: Left-sided stomach is present. Kidneys: No hydronephrosis. Normal is less than 5 mm in 2nd trimester, less than 7 mm in 3rd trimester. Cord: 3 vessel cord has orthotopic insertion. Bladder: Normal in size. Extremities: All 4 extremities are visualized. IMPRESSION: 1. Single live intrauterine gestation with fetus in variable presentation. heart rate is 155 bp m. Normal amount of amniotic fluid. Normal growth. Estimated weight is at 72.9%. 2. facial profile and diaphragm is not well seen due to position. Rest of the anato billie survey is within normal limits. Reviewed by: Chas Raymond MD on 08/23/2022 5:04 PM PST Approved by: Chas Raymond MD on 08/23/2022 5:04 PM PST Station ID: [id number]
== END 2022-08-22 20:35 | disposition home or self-care (01) ==
LOC: DI 20:34
PROVIDERS: ATTEND Obstetrics & Gynecology
DX: Z34.92 Encounter for supervision of normal pregnancy, unspecified, second trimester (principal)

== ENCOUNTER 2022-09-20 09:40 | Outpatient (CLI) | payer OTHER ==
--- NOTE | 2022-09-21 10:54 | Ultrasound Report ---
PROCEDURE: OB F/U or Repeat INDICATIONS: SUPERVISION OF OUTSIDE/PRIOR DATING DATA: Last menstrual period (LMP): 03/25/2022 LMP-based estimated date of delivery (BENY): 12/30/2022. First dating scan (date and location): 05/23/2022; [facility]. Estimated date of delivery (BENY) from first dating scan: 01/04/2023. The below data below was generated using the working BENY of 01/04/2023 TECHNIQUE: Real-time scanning was performed of the fetus, with image documentation and biometric measurements. COMPARISON: ultrasound 08/22/2022, 06/21/2022 and 05/23/2022. FINDINGS: General: A single living intrauterine gestation is present. Presentation: Transverse Placenta: Placental position is anterior, without previa. Amniotic fluid index: 17.9 cm, largest pocket 5.1 cm. heart rate: 153 beats per minute. Maternal cervical canal: 3.4 cm long; normal length is 2.5 cm or more. Other: facial profile is normal. Diaphragm is normal. There is a hypoechoic area anterior to placenta is prominent vascularity, measuring approximately 1.9 x 3.9 cm. IMPRESSION: 1. Single living IUP redemonstrated. 2. facial profile and diaphragm are visualized and appear normal. 3. There is a 1.9 x 3.9 cm hypoechoic area anterior to placenta with increased vascularity. It is of uncertain clinical significance. Consider follow-up imaging if clinically indicated. Reviewed by: Carlito Fowler MD on 09/21/2022 10:53 AM [facility] Approved by: Carlito Fowler MD on 09/21/2022 10:53 AM PST Station ID: [id number]
== END 2022-09-20 09:41 | disposition home or self-care (01) ==
LOC: DI 09:40
PROVIDERS: ATTEND Obstetrics & Gynecology
DX: O26.899 Other specified pregnancy related conditions, unspecified trimester (principal); Z3A.00 Weeks of gestation of pregnancy not specified

== ENCOUNTER 2022-10-07 12:21 | Outpatient (CLI) | payer OTHER ==
[2022-10-07 12:35] VITALS: BP 129/73
[2022-10-07 13:01] LABS: BASOPHILS % (AUTO) 0.3 %; EOSINOPHILS # (AUTO) 0.1 10^3/uL (0.0-0.7); EOSINOPHILS % (AUTO) 1.9 %; HCT - HEMATOCRIT 34.3 % (37.0-47.0); HGB - HEMOGLOBIN 11.8 g/dL (12.0-16.0); LYMPHOCYTES # (AUTO) 1.5 10^3/uL (1.5-3.5); MEAN CORPUSCULAR HEMOGLOBIN 31.8 pg (27.0-31.0); MEAN CORPUSCULAR HGB CONC 34.4 g/dL (32.0-36.0); MEAN CORPUSCULAR VOLUME 92.5 fL (81.0-99.0); MEAN PLATELET VOLUME 9.9 fL (7.9-10.8); MONOCYTES # (AUTO) 0.4 10^3/uL (0.0-1.0); MONOCYTES % (AUTO) 7.5 %; NEUTROPHILS # (AUTO) 3.8 10^3/uL (1.5-6.6); NEUTROPHILS % (AUTO) 64.4 %; PLT - PLATELET COUNT 200 10^3/uL (130-450); RED BLOOD COUNT 3.71 10^6/uL (4.20-5.40); RED CELL DISTRIBUTION WIDTH 13.1 % (12.0-15.0); WHITE BLOOD COUNT 5.9 x10^3/uL (4.8-10.8)
--- NOTE | 2022-10-07 14:17 | PROVIDER PROGRESS NOTE ---
- HPI Chief Complaint: Decreased movement Current : Vital Signs Temperature 98.6 F 10/07/22 12:34 Heart Rate 88 10/07/22 12:34 Respiratory Rate 16 10/07/22 12:34 Blood Pressure 129/73 10/07/22 12:34 O2 Saturation 100 10/07/22 12:34 Temperature 98.6 F 10/07/22 12:51 Heart Rate 88 10/07/22 12:34 Respiratory Rate 16 10/07/22 12:34 Blood Pressure 129/73 10/07/22 12:34 O2 Saturation 100 10/07/22 12:34 If not protocol: Oxygen Flow, liters/minute - Procedures OB Procedure Performed: NST Diagnosis/Indication for NST: Decreased movement NST Procedure: NST Procedure Start Time 16:32 Stop Time 17:01 Baseline: 145 Moderate variability Absence acceleration Absent deceleration Category 1 Service Date of procedure: 10/07/22 (Reactive nonstress test) Findings: Reactive nonstress test CBC normal COVID test negative - Plan Plan: She was sent from the clinic for further observation, she started to feel more active movement. And CBC with differential, negative COVID test, and monitoring showed category 1 and she wants to go home. She was reassured and discharged home with instruction. She is going to keep her next regular appointment.
--- NOTE | 2022-10-07 14:23 | PROCEDURE REPORT ---
- HPI Diagnosis/Indication for NST: Decreased movement Vital Signs Temperature 98.6 F 10/07/22 12:34 Heart Rate 88 10/07/22 12:34 Respiratory Rate 16 10/07/22 12:34 Blood Pressure 129/73 10/07/22 12:34 O2 Saturation 100 10/07/22 12:34 Temperature 98.6 F 10/07/22 12:51 Heart Rate 88 10/07/22 12:34 Respiratory Rate 16 10/07/22 12:34 Blood Pressure 129/73 10/07/22 12:34 O2 Saturation 100 10/07/22 12:34 If not protocol: Oxygen Flow, liters/minute - NST Procedure NST Procedure Start Time 16:32 Stop Time 17:01 Baseline: 145 Moderate variability Absence deceleration Absence acceleration - Results and Plan Findings/Impression: Indication for the nonstress test: Decreased movement Interpretation: Reactive nonstress test Plan: Discharged home with instruction, she will keep the regular next appointment.
== END 2022-10-07 14:15 | disposition home or self-care (01) ==
LOC: WFO 12:21 → FBP 12:24 → WFO 14:15
PROVIDERS: ATTEND Obstetrics & Gynecology
DX: O36.8130 Decreased fetal movements, third trimester, not applicable or unspecified (principal); Z20.822 Contact with and (suspected) exposure to COVID-19; Z3A.28 28 weeks gestation of pregnancy
CPT/HCPCS: 36415; 59025; 85025; 99215

== ENCOUNTER 2022-11-04 10:17 | Outpatient (CLI) | payer OTHER ==
[2022-11-04 11:33] LABS: HGB - HEMOGLOBIN 12.2 g/dL (12.0-16.0); MEAN CORPUSCULAR HEMOGLOBIN 31.4 pg (27.0-31.0); MEAN CORPUSCULAR VOLUME 95.1 fL (81.0-99.0); MEAN PLATELET VOLUME 9.8 fL (7.9-10.8); RED BLOOD COUNT 3.89 10^6/uL (4.20-5.40); RED CELL DISTRIBUTION WIDTH 13.2 % (12.0-15.0); WHITE BLOOD COUNT 5.1 x10^3/uL (4.8-10.8)
[2022-11-04 12:00] LABS: THYROID STIMULATING HORMONE 2.01 uIU/mL (0.34-5.60)
== END 2022-11-04 10:18 | disposition home or self-care (01) ==
LOC: LAB 10:17
PROVIDERS: ATTEND Nurse Practitioner
DX: O99.891 Other specified diseases and conditions complicating pregnancy (principal); R53.83 Other fatigue
CPT/HCPCS: 36415; 82728; 82950; 84443; 85027

== ENCOUNTER 2022-11-14 10:55 | Outpatient (CLI) | payer OTHER ==
[2022-11-14] MEDS ORDERED: ONDANSETRON 4 MG/2 ML VIAL IVP PRN (11:06)
[2022-11-14] MEDS ORDERED: LACTATED RINGERS 1,000 ML IV ONE (11:11)
[2022-11-14 11:15] VITALS: BP 117/71
--- NOTE | 2022-11-14 12:11 | PROCEDURE REPORT ---
- HPI Diagnosis/Indication for NST: Other (nausea and vomiting) Vital Signs Temperature 99.0 F 11/14/22 11:07 Heart Rate 115 H 11/14/22 11:07 Respiratory Rate 16 11/14/22 11:07 Blood Pressure 117/71 11/14/22 11:07 Temperature 99.0 F 11/14/22 11:07 Heart Rate 115 H 11/14/22 11:07 Respiratory Rate 16 11/14/22 11:07 Blood Pressure 117/71 11/14/22 11:07 O2 Saturation If not protocol: Oxygen Flow, liters/minute - NST Procedure NST Procedure Start Time 12:28 Stop Time 13:10 33 weeks 140, moderate variability, +accels, no decels reactive NST - Results and Plan Findings/Impression: Gen: NAD Vitals: within normal limits, afebrile, normal blood pressure Pulm: CTA bilaterally Cardiac: RRR Abdomen: gravid, nontender NST reactive Plan: Nausea and vomiting. wellbeing reassuring. Patient given IV fluid, zofran and discharged to home.
[2022-11-14 12:23] LABS: BASOPHILS % (AUTO) 0.2 %; EOSINOPHILS # (AUTO) 0.1 10^3/uL (0.0-0.7); EOSINOPHILS % (AUTO) 1.2 %; HCT - HEMATOCRIT 34.3 % (37.0-47.0); HGB - HEMOGLOBIN 11.8 g/dL (12.0-16.0); LYMPHOCYTES # (AUTO) 1.3 10^3/uL (1.5-3.5); LYMPHOCYTES % (AUTO) 25.2 %; MEAN CORPUSCULAR HEMOGLOBIN 31.8 pg (27.0-31.0); MEAN CORPUSCULAR HGB CONC 34.4 g/dL (32.0-36.0); MEAN CORPUSCULAR VOLUME 92.5 fL (81.0-99.0); MEAN PLATELET VOLUME 10.4 fL (7.9-10.8); MONOCYTES # (AUTO) 0.5 10^3/uL (0.0-1.0); MONOCYTES % (AUTO) 10.2 %; NEUTROPHILS # (AUTO) 3.2 10^3/uL (1.5-6.6); NEUTROPHILS % (AUTO) 62.4 %; PLT - PLATELET COUNT 189 10^3/uL (130-450); RED BLOOD COUNT 3.71 10^6/uL (4.20-5.40); RED CELL DISTRIBUTION WIDTH 12.9 % (12.0-15.0); WHITE BLOOD COUNT 5.1 x10^3/uL (4.8-10.8)
[2022-11-14 12:42] LABS: ALBUMIN 3.3 g/dL (3.2-5.5); BILIRUBIN,TOTAL 0.5 mg/dL (0.2-1.0); CALCIUM 8.8 mg/dL (8.5-10.3); CREATININE 0.4 mg/dL (0.4-1.0); POTASSIUM 3.5 mmol/L (3.5-5.0); TOTAL PROTEIN 6.7 g/dL (6.7-8.2)
== END 2022-11-14 12:50 | disposition home or self-care (01) ==
LOC: WFO 10:55 → FBP 10:56 → WFO 12:50
PROVIDERS: ATTEND Obstetrics & Gynecology Obstetrics
DX: O99.891 Other specified diseases and conditions complicating pregnancy (principal); R11.2 Nausea with vomiting, unspecified; O26.843 Uterine size-date discrepancy, third trimester; Z3A.33 33 weeks gestation of pregnancy
CPT/HCPCS: 36415; 59025; 76816; 80053; 85025; 96361; 96374; 99213; J7120

== ENCOUNTER 2022-11-14 18:40 | Outpatient (CLI) | payer OTHER ==
--- NOTE | 2022-11-17 09:52 | Ultrasound Report ---
PROCEDURE: OB F/U or Repeat INDICATIONS: UTERINE SIZE DATE DISCREPENCY OUTSIDE/PRIOR DATING DATA: Last menstrual period (LMP): 03/25/2022 LMP-based estimated date of delivery (BENY): 12/30/2022. First dating scan (date and location): 05/23/2022; [facility]. Estimated date of delivery (BENY) from first dating scan: 01/04/2023. The below data below was generated using the working BENY of 01/04/2023 TECHNIQUE: Real-time scanning was performed of the fetus, with image documentation and biometric measurements. COMPARISON: OB ultrasound, 09/20/2022, 08/22/2022 and 05/23/2022. FINDINGS: General: A single living intrauterine gestation is present. Presentation: Vertex Placenta: Placental position is anterior, without previa. Amniotic fluid index: 16.3 cm; largest pocket 5.5 cm. heart rate: 155 beats per minute. Maternal cervical canal: 5.9 cm long; normal length is 2.5 cm or more. biometrics: Biparietal diameter: 34 weeks 0 day Head circumference: 36 weeks 3 days Abdominal circumference: 33 weeks 0 day Femur length: 31 weeks 6 days Estimated gestational age from initial scan: 32 weeks 5 days. Composite gestational age from present scan: 33 weeks 6 days Estimated weight and percentile: 2118.8 g; 52.5% for gestational age. Measurement variability in biometric dating: +/- 10 days from 12-20 weeks gestation, +/- 2 weeks from 20-30 weeks gestation, +/- 3 weeks at 30 weeks gestation or more. The patient was brought back for additional scanning. The hypoechoic area seen on the last exam is no t visualized on the current exam. IMPRESSION: 1. A single living IUP with appropriate interval growth. 2. The estimated weight is 52.5% for gestational age. 3. BALJIT 16.3 cm. 4. The hypoechoic area within the placenta seen on the last exam is not visualized on the current exa m. Reviewed by: Carlito Fowler MD on 11/17/2022 9:50 AM PDT Approved by: Carlito Fowler MD on 11/17/2022 9:50 AM PDT Station ID: [id number]
== END 2022-11-14 18:41 | disposition home or self-care (01) ==
LOC: DI 18:40
PROVIDERS: ATTEND Nurse Practitioner
DX: O26.843 Uterine size-date discrepancy, third trimester (principal); Z3A.33 33 weeks gestation of pregnancy

== ENCOUNTER 2022-12-05 08:00 | Outpatient (CLI) | payer OTHER | END 2022-12-05 23:59 | disposition home or self-care (01) | LOC: LAB.WC 08:00 | PROVIDERS: ATTEND Obstetrics & Gynecology | DX: Z36.85 Encounter for antenatal screening for Streptococcus B (principal) | CPT/HCPCS: 87797 ==

== ENCOUNTER 2022-12-24 19:40 | Outpatient (CLI) | payer OTHER ==
[2022-12-24 20:17] VITALS: BP 126/70
--- NOTE | 2022-12-25 21:57 | PROVIDER PROGRESS NOTE ---
- HPI Chief Complaint: Decreased movement Current : Current EDU 12/30/22 Gestation 39 Weeks and 1 Days 2 Para 1 Vital Signs Temperature 97.9 F 12/24/22 20:00 Heart Rate 83 12/24/22 20:00 Respiratory Rate 20 12/24/22 20:00 Blood Pressure 126/70 12/24/22 20:00 O2 Saturation 100 12/24/22 20:00 If not protocol: Oxygen Flow, liters/minute 0 12/24/22 20:00 Temperature 97.9 F 12/24/22 20:25 Heart Rate 85 12/24/22 20:25 Respiratory Rate 18 12/24/22 20:25 Blood Pressure 126/70 12/24/22 20:25 O2 Saturation 100 12/24/22 20:00 If not protocol: Oxygen Flow, liters/minute 0 12/24/22 20:00 - Procedures OB Procedure Performed: NST NST Procedure: NST Procedure Start Date 12/24/22 Start Time 19:50 Stop Time 20:10 Vibroacoustic Stimulation Used No Patient States Movement Yes: After Ray's EFM: 130s, moderate variability, positive 15x15 accelerations, no decelerations [place]: one contraction NST reactive/Cat 1 Performed and read 12/24/22 Service Date of procedure: 12/24/22 - Plan Plan: 27yo at 39.1w presents to [facility] with concern of decreased movement. Still feels movement but not as much as before. Reassured after monitoring and feels movement now in triage. Denies contractions, leaking fluid, bleeding. Offered IOL, declines at this time. care at and complicated by V-NI. VSS GEN: NAD NST reactive/Cat 1 27yo at 39.1w with decreased FM, now improved and status reassuring - NST reactive - Discharge home, follow up as scheduled 12/28/22
== END 2022-12-24 20:25 | disposition home or self-care (01) ==
LOC: WFO 19:40 → FBP 19:42 → WFO 20:25
PROVIDERS: ATTEND Obstetrics & Gynecology
DX: O36.8130 Decreased fetal movements, third trimester, not applicable or unspecified (principal); Z3A.39 39 weeks gestation of pregnancy
CPT/HCPCS: 59025; 99213; 99214

== ENCOUNTER 2023-01-03 16:36 | Outpatient (CLI) | payer OTHER ==
[2023-01-03 17:37] VITALS: BP 118/70
--- NOTE | 2023-01-03 17:49 | PROCEDURE REPORT ---
- HPI Diagnosis/Indication for NST: Other (Patient presented for possible induction. Current gestational age is 40+3 weeks.) Current EDU 12/30/22 Gestation 40 Weeks and 4 Days 2 Vital Signs Temperature 99.5 F 01/03/23 16:57 Heart Rate 87 01/03/23 16:57 Respiratory Rate 18 01/03/23 16:57 Blood Pressure 118/70 01/03/23 16:57 Temperature 99.5 F 01/03/23 16:57 Heart Rate 87 01/03/23 16:57 Respiratory Rate 18 01/03/23 16:57 Blood Pressure 118/70 01/03/23 16:57 O2 Saturation If not protocol: Oxygen Flow, liters/minute - NST Procedure NST Procedure Start Time 19:50 Stop Time 20:10 40+3 weeks baseline 135, moderate variability, +accels, no decels Reactive NST - Results and Plan Findings/Impression: I offered patient induction of labor. I discussed methods including cytotec, pitocin, cervical ripening balloon. Patient declines induction at this time. I reviewed labor precautions and kick c ounting.
== END 2023-01-03 18:15 | disposition home or self-care (01) ==
LOC: WFO 16:36 → FBP 16:37 → WFO 18:15
PROVIDERS: ATTEND Obstetrics & Gynecology Obstetrics
DX: Z34.93 Encounter for supervision of normal pregnancy, unspecified, third trimester (principal)

== ENCOUNTER 2023-01-05 07:35 | Inpatient (IN) | payer OTHER ==
[2023-01-05] MEDS ORDERED: OXYTOCIN/SODIUM CHLORIDE 500 ML IV PRN ×2 (07:51→09:26)
[2023-01-05] MEDS ORDERED: OXYTOCIN 10 UNIT/ML VIAL IM PRN ×2 (07:51→09:26)
[2023-01-05] MEDS ORDERED: SODIUM CHLORIDE FLUSH 0.9% 10 ML SYRINGE IVP PRN ×2 (07:51→09:26)
[2023-01-05] MEDS ORDERED: TRANEXAMIC ACID IN NACL 1,000 MG/100 ML BAG IV PRN ×2 (07:51→09:26)
[2023-01-05] MEDS ORDERED: METHYLERGONOVINE 0.2 MG/ML VIAL IM PRN ×2 (07:51→09:26)
[2023-01-05] MEDS ORDERED: lidocaine 1% 20 ML MDV ID PRN ×2 (07:51→09:26)
[2023-01-05] MEDS ORDERED: miSOPROStoL 200 MCG TABLET BC PRN ×2 (07:51→09:26)
[2023-01-05] MEDS ORDERED: CARBOPROST TROMETHAMINE 250 MCG/ML AMP IM PRN ×2 (07:51→09:26)
[2023-01-05] MEDS ORDERED: LACTATED RINGERS 1,000 ML IV SCH (08:00)
[2023-01-05 08:34] LABS: BASOPHILS % (AUTO) 0.4 %; EOSINOPHILS # (AUTO) 0.1 10^3/uL (0.0-0.7); EOSINOPHILS % (AUTO) 1.1 %; HCT - HEMATOCRIT 36.4 % (37.0-47.0); HGB - HEMOGLOBIN 12.6 g/dL (12.0-16.0); LYMPHOCYTES # (AUTO) 1.6 10^3/uL (1.5-3.5); LYMPHOCYTES % (AUTO) 29.7 %; MEAN CORPUSCULAR HEMOGLOBIN 31.8 pg (27.0-31.0); MEAN CORPUSCULAR HGB CONC 34.6 g/dL (32.0-36.0); MEAN CORPUSCULAR VOLUME 91.9 fL (81.0-99.0); MEAN PLATELET VOLUME 10.3 fL (7.9-10.8); MONOCYTES # (AUTO) 0.4 10^3/uL (0.0-1.0); MONOCYTES % (AUTO) 7.8 %; NEUTROPHILS # (AUTO) 3.3 10^3/uL (1.5-6.6); NEUTROPHILS % (AUTO) 60.5 %; PLT - PLATELET COUNT 176 10^3/uL (130-450); RED BLOOD COUNT 3.96 10^6/uL (4.20-5.40); RED CELL DISTRIBUTION WIDTH 12.7 % (12.0-15.0); WHITE BLOOD COUNT 5.5 x10^3/uL (4.8-10.8)
[2023-01-05] MEDS ORDERED: SODIUM CHLORIDE FLUSH 0.9% 10 ML SYRINGE IVP SCH (09:00)
[2023-01-05] MEDS ORDERED: miSOPROStoL 200 MCG TABLET PR PRN (09:26)
[2023-01-05] MEDS ORDERED: TERBUTALINE 1 MG/ML VIAL SUBQ PRN (09:26)
[2023-01-05] MEDS ORDERED: LABETALOL 20 MG/4 ML SYRINGE IVP PRN ×3 (09:26)
[2023-01-05] MEDS ORDERED: hydrALAZINE INJ 20 MG/ML VIAL IVP PRN ×2 (09:26)
[2023-01-05] MEDS ORDERED: NIFEdipine 10 MG CAPSULE PO PRN (09:26)
[2023-01-05] MEDS ORDERED: miSOPROStoL 100 MCG TABLET BC SCH (09:30)
[2023-01-05] MEDS: ACETAMINOPHEN 500 MG TABLET PO PRN (09:40)
[2023-01-05] MEDS: CALCIUM CARBONATE CHEW 500 MG TABLET PO PRN (09:41)
[2023-01-05] MEDS: miSOPROStoL 100 MCG TABLET BC SCH ×2 (13:27→17:26)
--- NOTE | 2023-01-05 20:14 | HISTORY & PHYSICAL EXAMINATION ---
Admit History - : 2 Parity: 1 Smoking Status: Never smoker - Mother's Labs Mother's Blood Type: positive: O Mother's RH: positive: Positive GBS: positive: Group B Step Negative Rubella Status: positive: Immune - Other Maternal History Other Maternal History: HPI: 27-year-old -0-0-1 at 40 weeks 6 days gestation here for induction of labor. She has good movement. Denies loss of fluid. No VARELA/BV or RUQP. No vaginal bleeding. Denies nausea and vomiting. Denies urinary urgency or dysuria. All other symptoms reviewed and were negative except per HPI. Course LMP: 03/25/2022 BENY by LMP: 12/30/2022 Initial U/S: 06/21/2022; EGA 12.2; BENY by U/S 01/04/2023 FINAL BENY: 12/30/2022 Pre- Weight: 168 BMI: 28.06 Problems: Varicella-NI Headaches in treated with daily nifedipine O pos/Rubella immune VZV: not immune Genetic testing: Quad screening negative/normal 07/25/22 FAS: 407.8g 72.9%, 3VC, placental anterior w/o previa, BALJIT 11.5cm. profile and diaphragm not well seen. F/U US: 09/20/22 profile and diaphragm normal US f/u 11/14/22- 52.5%ile, 2118g Glucola 129 Influenza: reports got one in the fall 2021 TDAP 10/07/22 COVID GBS self-swab @ 36.3 wks 12/05- Negative HSV: Denies in self and partner Breast pump Rx 10/07/22 MOD: pp contraception: Nexplanon vs depo provera pap:02/26/2020 Normal Initial GC/CT: 06/24/2022 negative PMH Headaches PSH Denies previous surgery OB History -0-0-1 1. 09/08/2020, , female, 2670 g SH Denies tobacco, alcohol, drugs Family History Denies pertinent history Allergies No known drug allergies Medications Famotidine Nifedipine for headaches Physical exam: General: Alert, oriented, no acute distress Head: Normal cephalic atraumatic Eyes: PERRLA, extraocular motions intact. Respiratory: Normal rate of respiration. No accessory muscle use, normal respiratory effort. Cardiovascular: Regular rate and rhythm Abdomen: Gravid, nontender, nondistended Extremities: Normal range of motion Neuro: Oriented x3. Normal movements Psych: Appropriate mood and affect. Normal judgment and insight SVE: 08/15/3 FHT: 130 beats per baseline, moderate variability, accelerations present, no decelerations. [place]: Irregular Plan 27-year-old -0-0-1 at 40 weeks 6 days gestation admitted for induction of labor at term 1. Induction of labor -Admit to L&D, epidural at patient's request. Admit labs -Misoprostol 25 mcg buccal 2. 40 weeks gestation 3. headaches -Well-tolerated Meds/Allgy - Home Medications Home Medications: Ambulatory Orders Medication Instructions Recorded Confirmed Folic Acid 1 mg PO DAILY 05/23/22 05/23/22 Ondansetron Odt [Zofran Odt] 4 mg TL Q6H PRN #10 tablet 05/23/22 Pnv No.95/Ferrous Fum/Folic AC 1 each PO DAILY #90 tablet 05/23/22 [ [place]] - Allergies Allergies/Adverse Reactions: Allergies Allergy/AdvReac Type Severity Reaction Status Date / Time No Known Drug Allergies Allergy Verified 05/23/22 11:28 Physical - Abdominal Exam Vital Signs: Temp Pulse Resp BP Pulse Ox O2 Flow Rate 98.1 F 87 16 111/71 100 01/05/23 09:00 01/05/23 09:00 01/05/23 09:00 01/05/23 09:00 01/05/23 09:00 Plan for Labor - Plan For Labor I expect patient to be DC'd or transferred within 96 hours.: Yes
--- NOTE | 2023-01-05 23:33 | PROVIDER PROGRESS NOTE ---
Labor Progress Note - Uterine Monitoring Uterine Monitoring Mode: positive: External toco Contraction Frequency (min/apart): 5-10 Contraction Intensity: positive: Moderate Uterine Resting Tone: positive: Soft - Monitoring Monitor Mode: positive: External ultrasound Heart Rate Baseline: 130 Heart Rate Variability: positive: Moderate (6-25 bmp) Accelerations: positive: Present, 15x15 Decelerations: positive: None Strip Review: positive: Category I - Vaginal Exam Dilation (in cm): 1 Effacement (%): 30 Station: -3 Cervical Position: Posterior - Labor Progress Note Labor Progress Note/Additional Text: Patient cervix still very high. Minimal dilation. Declining more misoprostol at this time. Would like cervical ripening balloon and oxytocin, so we discussed the benefits and risks and 1 was placed. Lim catheter placed with 30 mL of fluid and taped on tension to patient's leg. Category 1 tracing. Patient tolerating labor well. Plan to start oxytocin and titrate to regular contractions.
[2023-01-05] MEDS: LACTATED RINGERS 1,000 ML IV SCH (23:37)
[2023-01-06] MEDS: fentaNYL 100 MCG/2 ML VIAL IVP PRN ×4 (00:04→03:35)
[2023-01-06] MEDS: OXYTOCIN/SODIUM CHLORIDE 500 ML IV SCH (00:18)
[2023-01-06] MEDS: CALCIUM CARBONATE CHEW 500 MG TABLET PO PRN (04:27)
--- NOTE | 2023-01-06 04:30 | PROVIDER PROGRESS NOTE ---
Labor Progress Note - Uterine Monitoring Uterine Monitoring Mode: positive: External toco Contraction Frequency (min/apart): 2-5 Contraction Intensity: positive: Strong - Monitoring Monitor Mode: positive: External ultrasound Heart Rate Baseline: 135 Heart Rate Variability: positive: Moderate (6-25 bmp) Accelerations: positive: Present, 15x15 Decelerations: positive: None - Vaginal Exam Dilation (in cm): 5 Effacement (%): 80 Station: -1 - Labor Progress Note Labor Progress Note/Additional Text: Patient had spontaneous rupture of membranes. Currently on oxytocin at 9 milliunits/min. Feeling increased pressure. Received fentanyl for pain control. We will switch to nitrous oxide. Declines epidural.
[2023-01-06] MEDS: LACTATED RINGERS 1,000 ML IV SCH ×2 (04:42→20:33)
[2023-01-06] MEDS ORDERED: fentaNYL 100 MCG/2 ML VIAL ONE (07:32)
[2023-01-06] MEDS ORDERED: ROPIVACAINE 0.2% 200 MG/100 ML BAG EP ONE (07:32)
[2023-01-06] MEDS ORDERED: ROPIVACAINE 0.2% 200 MG/100 ML BAG EP PRN (08:06)
[2023-01-06] MEDS ORDERED: NALOXONE 0.4 MG/ML VIAL IVP PRN ×3 (08:06→10:51)
[2023-01-06] MEDS ORDERED: ePHEDrine 50 MG/ML VIAL IVP PRN (08:06)
--- NOTE | 2023-01-06 08:06 | ANESTHESIA ---
Pre-Anesthesia VS, & Labs - Diagnosis active labor - Procedure vaginal delivery Vital Signs: Temp Pulse Resp BP Pulse Ox O2 Flow Rate 36.7 C 87 16 111/71 100 01/05/23 09:00 01/05/23 09:00 01/05/23 09:00 01/05/23 09:00 01/05/23 09:00 Height: 5 ft 5 in Weight (kg): 86.636 kg Body Mass Index: 31.8 BMI Classification: Obese - NPO Last Fluid Intake: clear liquids during labo - Is Patient ?: Yes - Lab Results Current Lab Results: Laboratory Tests 01/05/23 08:17: Blood Type O POSITIVE, Antibody Screen NEGATIVE 01/05/23 08:17: WBC 5.5, RBC 3.96 L, Hgb 12.6, Hct 36.4 L, MCV 91.9, MCH 31.8 H, MCHC 34.6, RDW 12.7, Plt Count 176, MPV 10.3, Neut # (Auto) 3.3, Lymph # (Auto) 1.6, [place] # (Auto) 0.4, Eos # (Auto) 0.1, Baso # (Auto) 0.0, Absolute Nucleated RBC 0.00, Nucleated RBC % 0.0 Lab results reviewed: Yes Fish Bones: 01/05/23 08:17 Home Medications and Allergies Active Medications Acetaminophen (Acetaminophen 500 Mg Tablet) 1,000 mg PO Q6HR PRN PRN Reason: HEADACHE Last Admin: 01/05/23 09:40 Dose: 1,000 mg Calcium Carbonate/Glycine (Calcium Carbonate Chew 500 Mg Tablet) 500 mg PO BID PRN PRN Reason: Heartburn Last Admin: 01/06/23 04:27 Dose: 500 mg Carboprost Tromethamine (Carboprost Tromethamine 250 Mcg/Ml Amp) 250 mcg IM .ON CE PRN PRN Reason: Hemorrhage Hydralazine HCl (Hydralazine Inj 20 Mg/Ml Vial) 10 mg IVP .ONCE PRN; Protocol PRN Reason: SBP> or= 160 OR DBP> or= 110 Hydralazine HCl (Hydralazine Inj 20 Mg/Ml Vial) 5 - 10 mg IVP Q20M PRN; Protocol PRN Reason: SBP> or= 160 OR DBP> or= 110 Oxytocin/Sodium Chloride (Pitocin/Sodium Chloride) 500 mls @ 999 mls/hr IV PRN PRN; Protocol PRN Reason: POST- HEMORR PREVENTION Tranexamic Acid (Tranexamic 1,000 Mg/100ml-Nacl) 1,000 mg in 100 mls @ 600 mls/hr IV Q30M PRN PRN Reason: EBL >1200mL and within 3hr Lactated Ringer's (Lr) 1,000 mls @ 125 mls/hr IV .Q8H [facility] Last Admin: 01/06/23 04:42 Dose: 125 mls/hr Oxytocin/Sodium Chloride (Pitocin/Sodium Chloride) 500 mls @ 2 mls/hr IV TITR TADEO; Protocol Last Titration: 01/06/23 02:31 Dose: 9 milliunit/min, 9 mls/hr Labetalol HCl (Labetalol 20 Mg/4 Ml Syringe) 20 mg IVP .ONCE PRN; Protocol PRN Reason: SBP> or= 160 OR DBP> or= 110 Labetalol HCl (Labetalol 20 Mg/4 Ml Syringe) 20 - 80 mg IVP Q10M PRN; Protocol PRN Reason: SBP> or= 160 OR DBP> or= 110 Labetalol HCl (Labetalol 20 Mg/4 Ml Syringe) 20 - 40 mg IVP Q10M PRN; Protocol PRN Reason: SBP> or= 160 OR DBP> or= 110 Lidocaine HCl (Lidocaine 1% 20 Ml Mdv) 20 ml ID .ONCE PRN PRN Reason: PERINEAL REPAIR Stop: 01/08/23 09:26 Methylergonovine Maleate (Methylergonovine 0.2 Mg/Ml Vial) 0.2 mg IM .ONCE PRN PRN Reason: Hemorrhage Misoprostol (Misoprostol 200 Mcg Tablet) 600 mcg BC .ONCE PRN PRN Reason: Hemorrhage Misoprostol (Misoprostol 200 Mcg Tablet) 800 mcg NC .ONCE PRN PRN Reason: Hemorrhage Misoprostol (Misoprostol 100 Mcg Tablet) 25 mcg BC Q4H [facility] Last Admin: 01/05/23 17:26 Dose: 25 mcg Nifedipine (Nifedipine 10 Mg Capsule) 10 - 20 mg PO Q20M PRN; Protocol PRN Reason: SBP> or= 160 OR DBP> or= 110 Oxytocin (Oxytocin 10 Unit/Ml Vial) 10 unit IM .ONCE PRN PRN Reason: Step One if no IV access. Sodium Chloride (Sodium Chloride Flush 0.9% 10 Ml Syringe) 10 ml IVP Q8H TADEO Sodium Chloride (Sodium Chloride Flush 0.9% 10 Ml Syringe) 10 ml IVP PRN PRN PRN Reason: NEEDED PER PROVIDER ORDERS Terbutaline Sulfate (Terbutaline 1 Mg/Ml Vial) 0.25 mg SUBQ .ONCE PRN PRN Reason: Tachystole Folic Acid 1 mg PO DAILY 05/23/22 Allergies/Adverse Reactions: Allergies Allergy/AdvReac Type Severity Reaction Status Date / Time No Known Drug Allergies Allergy Verified 05/23/22 11:28 Anes History & Medical History - Anesthetic History Family history of Anesthesia Complications: Denies Family history of Malignant Hyperthermia: Denies - Medical History Cardiovascular: reports: None Pulmonary: reports: Tuberculosis Gastrointestinal: reports: None Urinary: reports: None Neuro: reports: None Musculoskeletal: reports: None Endocrine/Autoimmune: reports: None Blood Disorders: reports: None Skin: reports: None Smoking Status: Never smoker Psychosocial: reports: No issues indicated History of Cancer?: No - Obstetrical History : 2 Parity: 1 Events: reports: None Complications: reports: None Exam General: Alert, Oriented x3, Cooperative, No acute distress Dental: WNL Mental/Cognitive Status: Alert/Oriented X3, Normal for patient Plan Anesthesia Type: Epidural Consent for Procedure(s) Verified and Reviewed: Yes Code Status: Attempt Resuscitation ASA classification: 2-Mild systemic disease Is this case an emergency?: No
--- NOTE | 2023-01-06 08:14 | PROVIDER PROGRESS NOTE ---
Labor Progress Note - Uterine Monitoring Uterine Monitoring Mode: positive: External toco Contraction Frequency (min/apart): 2-5 Contraction Intensity: positive: Strong - Monitoring Monitor Mode: positive: External ultrasound Heart Rate Baseline: 135 Heart Rate Variability: positive: Moderate (6-25 bmp) Accelerations: positive: Present, 15x15 Decelerations: positive: Late, Recurrent (>50% x20 min) Strip Review: positive: Category II - Vaginal Exam Dilation (in cm): 9 Effacement (%): 90 Station: -1 - Labor Progress Note Labor Progress Note/Additional Text: Patient again having decelerations and was pushing uncontrollably against a cervix dilated to 8 cm. Cervix was not reducible. For approximately 2 to 3 minutes, patient made distorted facies and stopped responding to us. Eyes remained open and had no tonic-clonic movements. She contorted her face and moved her tongue around. Apparently this happened previously in the last labor after an epidural and similarly with an outpatient provider. She had no postictal events. We decided to place an epidural with a move towards a section or get comfortable for vaginal delivery which was placed after patient calmed down. She continued to push, although did not make good descent. She was declining section saying they would rather push. After several more contractions, she consented to a section.
[2023-01-06] MEDS ORDERED: OXYTOCIN 10 UNIT/ML VIAL ONE (08:22)
[2023-01-06] MEDS ORDERED: LIDOCAINE MPF 2%-EPI 1:200000 20 ML VIAL ONE (08:23)
[2023-01-06] MEDS ORDERED: ceFAZolin 1 GM VIAL ONE (08:33)
[2023-01-06] MEDS ORDERED: ROPIVACAINE 0.5% PF 20 ML VIAL ONE (08:51)
[2023-01-06] MEDS ORDERED: SODIUM CHLORIDE 0.9% 10 ML VIAL IVP ONE (08:52)
[2023-01-06] MEDS ORDERED: KETOROLAC 30 MG/ML VIAL ONE (09:00)
[2023-01-06] MEDS ORDERED: ACETAMINOPHEN 1,000 MG/100 ML 1,000 MG/100 ML BAG IV ONE (09:00)
[2023-01-06] MEDS ORDERED: WITCH HAZEL/GLYCERIN 1 PAD TOP PRN (09:23)
[2023-01-06] MEDS ORDERED: VARICELLA VACCINE LIVE/PF 1,350 UNIT/0.5 ML VIAL SUBQ ONE (09:23)
[2023-01-06] MEDS ORDERED: OXYTOCIN/SODIUM CHLORIDE 500 ML IV PRN (09:23)
[2023-01-06] MEDS ORDERED: HYDROCORTISONE 1% CREAM 28 GM TUBE TOP PRN (09:23)
--- NOTE | 2023-01-06 09:39 | DELIVERY NOTE ---
Delivery Note - Labor Labor: positive: Augmented by oxytocin - Infant Delivery Method Delivery Method: positive: Primary - Cervical Ripening Method Cervical Ripening Method: positive: Misoprostil - Presentation Presentation: positive: Vertex - Nuchal Cord Nuchal Cord: positive: None - Anesthetic Anesthetic Type: - Amniotic Fluid Description Amniotic Fluid Description: positive: Clear - Delivery Outcome Delivery Outcome: positive: Livebirth - [place] : positive: Bulb syringe, Stimulated, Warmed, [place] used, Warmer used sex: positive: Male - Cord Cord: positive: 3 vessels - Placenta Placenta: positive: Intact - Estimated Blood Loss Estimated Blood Loss (in cc): 800 - Post Delivery Events Post Delivery Events: positive: No post delivery events, Unplanned - Delivery Comments (Free Text/Narrative) Delivery Comments (Free Text/Narrative): Under epidural anaesthetic with a schmidt catheter inserted, the patient was prepped and draped in the usual sterile fashion in the supine position with a leftward tilt. A Pfannensteil incision was made. The incision was carried down to the fascia with sharp dissection. The fascia was incised transversely and dissected off the rectus muscle using blunt and sharp dissection. Electrocautery was used for hemostasis. The peritoneum was opened taking care not to injure the bladder. The vesicouterine peritoneum was dissected off the lower uterine segment. The lower segment was assessed and a low transverse incision was made. The uterine incision was extended bluntly. The fetus was presenting as a vertex. The head was delivered without difficulty and the rest of the body followed easily. After one minute of delayed cord clamping, the cord was clamped twice and cut and the [facility] transferred [facility], awaiting the pediatric staff. Cord blood collected. The placenta was then delivered with assistance. The uterus was explored and was empty of all tissue. The uterus was exteriorized for better visualization. The uterine incision was then closed in two layers) with 0- Monocryl suture. The first layer was locking and the second was imbricating. Tubes and ovaries were examined and appeared normal. The fascia was closed with 0-Vicryl in a running unlocked fashion. Subcutaneous layer reapproximated with 2-0 Chromic. The skin was then reapproximated with 4-0 Monocryl. At the end of the procedure all sponges, instruments, and sharps were counted and correct. Estimated blood loss was 800cc. The patient and baby were taken to the recovery in stable condition.
[2023-01-06] MEDS ORDERED: LACTATED RINGERS 250 ML IV ONE (09:43)
[2023-01-06] MEDS ORDERED: LACTATED RINGERS 1,000 ML IV ONE (09:43)
[2023-01-06] MEDS ORDERED: miSOPROStoL 200 MCG TABLET ONE (10:00)
[2023-01-06] MEDS ORDERED: METHYLERGONOVINE 0.2 MG/ML VIAL ONE (10:01)
[2023-01-06] MEDS ORDERED: CARBOPROST TROMETHAMINE 250 MCG/ML AMP IM ONE (10:01)
--- NOTE | 2023-01-06 10:33 | ANESTHESIA POST OP EVALUATION ---
Anesthesia Post Eval - Post Anesthesia Eval Vitals: Last Vital Signs Temp 36.7 C 01/06/23 10:05 Pulse 83 01/06/23 10:15 Resp 20 01/06/23 10:15 BP 115/62 01/06/23 10:15 Pulse Ox 100 01/06/23 10:15 O2 Flow Rate CV Function Including HR & BP: Stable Pain Control: Satisfactory Nausea & Vomiting: Negative Mental Status: Baseline Respiratory Status: Airway Patent Hydration Status: Satisfactory Anesthesia Complications: None
[2023-01-06] MEDS ORDERED: HYDROmorphone 0.5 MG/0.5 ML SYRINGE IVP PRN (10:51)
[2023-01-06] MEDS ORDERED: MORPHINE 2 MG/ML CARPUJECT IVP PRN (10:51)
[2023-01-06] MEDS ORDERED: ATROPINE ABBOJECT 1 MG/10 ML SYRINGE IVP PRN (10:51)
[2023-01-06] MEDS ORDERED: fentaNYL 100 MCG/2 ML VIAL IVP PRN (10:51)
[2023-01-06] MEDS ORDERED: ONDANSETRON 4 MG/2 ML VIAL IVP PRN (10:51)
[2023-01-06] MEDS ORDERED: LACTATED RINGERS 1,000 ML IV SCH (11:00)
[2023-01-06] MEDS: oxyCODONE 5 MG TABLET PO PRN ×3 (13:32→22:57)
[2023-01-06] MEDS: KETOROLAC 30 MG/ML VIAL IVP SCH ×2 (15:49→22:29)
[2023-01-06] MEDS: ACETAMINOPHEN 500 MG TABLET PO PRN (15:49)
[2023-01-06] MEDS: DOCUSATE SODIUM 100 MG CAPSULE PO SCH (22:28)
[2023-01-06] MEDS: SODIUM CHLORIDE FLUSH 0.9% 10 ML SYRINGE IVP SCH (22:29)
[2023-01-07] MEDS: ACETAMINOPHEN 500 MG TABLET PO SCH ×3 (01:00→15:49)
[2023-01-07] MEDS: SIMETHICONE CHEW 80 MG TABLET PO PRN ×2 (02:27→21:58)
[2023-01-07] MEDS: SODIUM CHLORIDE FLUSH 0.9% 10 ML SYRINGE IVP SCH ×3 (04:43→20:49)
[2023-01-07] MEDS: oxyCODONE 5 MG TABLET PO PRN ×3 (04:43→14:39)
[2023-01-07] MEDS: KETOROLAC 30 MG/ML VIAL IVP SCH (04:43)
[2023-01-07 05:00] LABS: HCT - HEMATOCRIT 31.7 % (37.0-47.0); HGB - HEMOGLOBIN 10.7 g/dL (12.0-16.0); MEAN CORPUSCULAR HEMOGLOBIN 31.4 pg (27.0-31.0); MEAN CORPUSCULAR HGB CONC 33.8 g/dL (32.0-36.0); MEAN PLATELET VOLUME 9.7 fL (7.9-10.8); RED BLOOD COUNT 3.41 10^6/uL (4.20-5.40); RED CELL DISTRIBUTION WIDTH 12.9 % (12.0-15.0); WHITE BLOOD COUNT 8.8 x10^3/uL (4.8-10.8)
--- NOTE | 2023-01-07 07:47 | PROVIDER PROGRESS NOTE ---
Subjective - Prog Note Date Prog Note Date: 01/07/23 - Subjective Subjective: feeling well; breast feeding without difficulty Objective - Vital Signs/Intake & Output Vital Signs: Vital Signs x48h Temp Pulse Resp BP Pulse Ox 01/07/23 04:39 98.6 F 88 18 112/58 L 98 01/07/23 01:02 98.1 F 81 18 112/66 98 Intake & Output: Intake & Output 01/04/23 01/05/23 01/06/23 01/07/23 23:59 23:59 23:59 23:59 Intake Total 602.911 2321.500 300 Output Total 1950 1125 Balance 527.083 533.500 -825 - Objective General Appearance: positive: No acute distress Abdomen: positive: Non-tender (sitting up and eating; no distress; pain well controled) - Lab Results Fish Bones: 01/07/23 04:54 Other Labs: Lab Results x24hrs 01/07/23 Range/Units 04:54 WBC 8.8 (4.8-10.8) x10^3/uL RBC 3.41 L (4.20-5.40) 10^6/uL Hgb 10.7 L (12.0-16.0) g/dL Hct 31.7 L (37.0-47.0) % MCV 93.0 (81.0-99.0) fL MCH 31.4 H (27.0-31.0) pg MCHC 33.8 (32.0-36.0) g/dL RDW 12.9 (12.0-15.0) % Plt Count 147 (130-450) 10^3/uL MPV 9.7 (7.9-10.8) fL Assessment/Plan - Problem List (1) delivery delivered Impression: POD #1 s/p primary CD; doing well; plan routine PP care with anticipated d/c to home tomorrow
--- NOTE | 2023-01-07 07:47 | DISCHARGE SUMMARY ---
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 and doing well Breast feeding without difficulty without concerns - HOSPITAL COURSE Hospital Course: admitted in active labor; uncomplicated ; routine pospartum course - ALLERGIES Allergies/Adverse Reactions: Allergies Allergy/AdvReac Type Severity Reaction Status Date / Time No Known Drug Allergies Allergy Verified 05/23/22 11:28 - MEDICATIONS Home Medications: Ambulatory Orders Medication Instructions Recorded Confirmed Folic Acid 1 mg PO DAILY 05/23/22 05/23/22 Ondansetron Odt [Zofran Odt] 4 mg TL Q6H PRN #10 tablet 05/23/22 Pnv No.95/Ferrous Fum/Folic AC 1 each PO DAILY #90 tablet 05/23/22 [ [place]] - PHYSICAL EXAM AT DISCHARGE General Appearance: positive: No acute distress Respiratory: positive: No respiratory distress Abdomen: positive: Non-tender Extremities: positive: Non-tender Neurologic/Psychiatric: positive: Oriented x3 - LABS Result Diagrams: 01/07/23 04:54 - QUALITY (Female Hip Fx Only) Was patient sent home on osteoporosis medication?: No - FOLLOW UP Follow Up: f/u with primary OB provider/[facility] - TIME SPENT Time Spent in Discharge (Minutes): 20
--- NOTE | 2023-01-07 07:47 | Discharge Plan ---
Discharge Plan Problem Reviewed?: Yes Disposition: Home, Self Care Condition: Stable Diet: Regular Activity Restrictions: pelvic rest Shower Restrictions: No Driving Restrictions: Yes (no diriving while using pain medication) Health Concerns: NA No Smoking: If you smoke, Please STOP! Call for help. Follow-up with: Angelic Rawls DO [Provider Admit Priv/Credential] -
[2023-01-07] MEDS: DOCUSATE SODIUM 100 MG CAPSULE PO SCH ×2 (08:50→21:58)
[2023-01-07] MEDS: IBUPROFEN 800 MG TABLET PO SCH ×3 (10:21→21:58)
[2023-01-07] MEDS ORDERED: VARICELLA VACCINE LIVE/PF 1,350 UNIT/0.5 ML VIAL SUBQ ONE (16:00)
[2023-01-07] MEDS: LACTATED RINGERS 1,000 ML IV SCH (20:45)
[2023-01-07] MEDS: OXYTOCIN/SODIUM CHLORIDE 500 ML IV SCH (20:45)
[2023-01-08] MEDS: ACETAMINOPHEN 500 MG TABLET PO SCH ×2 (00:39→08:23)
[2023-01-08] MEDS: IBUPROFEN 800 MG TABLET PO SCH (05:05)
[2023-01-08 07:48] VITALS: BP 109/77
[2023-01-08] MEDS: DOCUSATE SODIUM 100 MG CAPSULE PO SCH (08:23)
--- NOTE | 2023-01-08 09:19 | PROVIDER PROGRESS NOTE ---
Progress Note Post operative day #2 SubjectiveNo complaints, feeling well, "Ready to go home " Objective-VSS AF Has met all DC criteria GEN-INAD RESP-NO DISTRESS ABD-soft, nt, nd, incision, clean dry and intact with steri strips in place -mod lochia Ext-no calf tenderness AP-POD #2 s/p primary LT C/S Doing well; Discharge home today to self-care Matthew Chawla MD
--- NOTE | 2023-01-08 12:53 | Labor Flowsheet ---
Labor Flowsheet Datetime Report Generated by CPN: 01/08/2023 12:53 Datetime: 01/06/2023 19:25 VITAL SIGNS NBP Sys/Melia/Mean (mmHg): 108 : 59 : 71 Pulse: 83 SpO2 (%): 99 Datetime: 01/06/2023 15:41 Membranes Ruptured Date/Time: 01/06/2023 06:35 Datetime: 01/06/2023 09:00 Stage of : Datetime: 01/06/2023 08:19 FHR Baseline Changes: No Baseline Change Datetime: 01/06/2023 08:16 LaborFlag: Antepartum Datetime: 01/06/2023 07:46 MEDICATIONS Pitocin (milliunits): Decreased to @ 6 PATIENT CARE IV/Blood Work: IV Bolus Given ml @ 500; IV Infusing per Order Datetime: 01/06/2023 07:40 Epidural Procedure: Cath Placed Datetime: 01/06/2023 07:30 Actions for Decelerations: Side to Side; IV Bolus; Provider Notified Datetime: 01/06/2023 07:29 Anesthesia Comments: EVENTS SPECIALIST started informed consent, pt interrupted her and signed consent. Urged her to do epidural qwuickly, kept saying "I'm going to ", reassured pt she won't , we're here to keep her and baby safe Datetime: 01/06/2023 07:28 ANESTHESIA Epidural Positioning: Side Lying Datetime: 01/06/2023 07:11 COMMUNICATION Communication: Provider at Bedside Datetime: 01/06/2023 07:07 Patient Position/Activity: Left Lateral Datetime: 01/06/2023 07:00 Patient Care Comments: Late doc of [facility] [[email or web address] d/t amount of hands on care pt required. Communication Comments: Matthew Cedeno was continusously at bedside except to retrieve meds or supplie s from [id number], constantly listening to FHR and aware of decels. Late doc of FHR/UCs Datetime: 01/06/2023 06:35 Membrane Status: Ruptured Membranes Rupture Method: Artificial Amniotic Fluid Color: Light Meconium Amniotic Fluid Amount: Moderate Amniotic Fluid Odor: Normal Membrane Comments: mod mec Datetime: 01/06/2023 05:54 VAGINAL EXAM Dilatation (cm): 7.0 Effacement (%): 90 Station: 0 Exam by: Matthew Cedeno RN Vaginal Bleeding: Normal Show Cervix, Consistency: Soft Cervix, Position: Midposition Vaginal Exam Comments: SVE for spont pushing. Instructed how to breathe and not push d/t risk for c ervical lac. Datetime: 01/06/2023 05:36 Hygiene: [facility] Datetime: 01/06/2023 05:00 Pitocin Checklist: At Least 1 Acceleration of 15 bpm x 15 Seconds in 30 Minutes or Adequate Variabi lity; No More than 1 Late Deceleration Occurred in Past 30 Minutes; No More than 2 Variable Decelerat ions > 60 Seconds in Duration and decreasing >60 bpm in 30 minutes; No More than 5 Uterine Contractio ns in 10 Minutes for any 20 Minute Interval; Uterus Palpates Soft between Contractions Datetime: 01/06/2023 04:36 Pain Assessment Comments: nitrous started Datetime: 01/06/2023 04:31 Medication Comments: tums 500 mg po mg given Datetime: 01/06/2023 04:27 Teaching Comments: educ pt and FOB on nitrous oxide, pt is only person to hold mask to her face as safety measure to prevent overdose. Pt and FOB verb understanding and gave verbal consent for it Datetime: 01/06/2023 03:35 PAIN Pain Scale: 10 Pain Presence: Intermittent Pain Type: Contraction Pain Location: Abdomen Pain Relief Measures: Pain Medication Given Analgesics/Sedatives: Fentanyl (mcg) @ 50 Datetime: 01/06/2023 03:30 Monitor Interventions for FHR: Ultrasound Adjusted Datetime: 01/06/2023 01:40 Respirations: 20 Datetime: 01/06/2023 01:32 Pain Goal: 9 Datetime: 01/06/2023 01:28 Provider Notified (Name): Dr Saul Datetime: 01/06/2023 01:24 Pain Coping: Breathing Through Contractions; Requesting Pain Medication or Epidural Comfort Measures: Breathing/Relaxation Datetime: 01/06/2023 01:07 I/O Interventions: Up to BR Datetime: 01/05/2023 23:30 Monitor Interventions for UA: [place] Adjusted Datetime: 01/05/2023 22:16 MATERNAL ASSESSMENT Level of Consciousness: Alert Datetime: 01/05/2023 21:30 UTERINE ACTIVITY Monitor Mode: External Frequency (min): 4-10 Quality: Mild Duration (sec): 90-160 Pattern: Normal: <= 5 Contractions in 10 Minutes Resting Tone (Palpate): Relaxed ASSESSMENT A Monitor Mode: External US FHR Baseline Rate : 135 Variability: Moderate 6-25 bpm Accelerations: 15X15 Decelerations: None Category: Category I Comments: min LTV x 2 min Datetime: 01/05/2023 21:22 Contraction Comments: started cont palpation Datetime: 01/05/2023 20:21 Temperature (C): 37.2 Datetime: 01/05/2023 17:27 Cervical Ripening Agents: Cytotec @ Datetime: 01/05/2023 16:05 Temperature Route: Oral Datetime: 01/05/2023 13:41 TEACHING Instructional Method: Verbal Plan of Care: Plan of Care Discussed
== END 2023-01-08 11:45 | disposition home or self-care (01) | DRG 788 ==
LOC: WFO 07:35 → FBP 07:38 → WFO 07:50 → FBP 07:51 → OBSVTOIN 23:35 → FBP 01-06 22:04
PROVIDERS: ADMIT Obstetrics & Gynecology; ATTEND Obstetrics & Gynecology
PROC: 0U7C7ZZ Dilation of Cervix, Via Natural or Artificial Opening (ICD-10-PCS; 2023-01-05)
PROC: 10D00Z1 Extraction of Products of Conception, Low, Open Approach (ICD-10-PCS; principal; 2023-01-06 08:30)
DX: O76 Abnormality in fetal heart rate and rhythm complicating labor and delivery (principal); Z37.0 Single live birth; Z23 Encounter for immunization; Z3A.41 41 weeks gestation of pregnancy
CPT/HCPCS: 36415; 85025; 85027; 86850; 86900; 86901; 90716; A9270; J0131; J2795; J7120

== ENCOUNTER 2023-01-27 13:31 | Emergency (ER) | payer OTHER | END 2023-01-27 16:07 | disposition left against medical advice (07) | LOC: ED 13:31 | DX: Z53.21 Procedure and treatment not carried out due to patient leaving prior to being seen by health care provider (principal) ==

== ENCOUNTER 2023-10-04 18:59 | Outpatient (CLI) | payer OTHER ==
--- NOTE | 2023-10-05 10:37 | Ultrasound Report ---
PROCEDURE: Pelvic Complete INDICATIONS: PELVIS PAIN TECHNIQUE: Real-time transabdominal scanning was performed of the pelvic organs, with image documentation. Jones sabdominal views were obtained. COMPARISON: Ultrasound 11/17/2022. FINDINGS: Uterus: Uterus is anteverted and normal in size at 7.3 x 3.4 x 4.4 cm. The myometrium is homogeneou s. The endometrium measures 8 mm in combined thickness. Punctate endometrial calcification at the f undus, benign. Ovaries: The right ovary measures 3 x 2.1 x 3.6 cm, with a calculated ovarian volume of 12 cc. The left ovary measures 2.6 x 2.6 x 2.8 cm, with a calculated ovarian volume of 9 cc. The ovaries have a normal sonographic appearance. Less than 12 follicles can be seen in each ovary. No adnexal masses are seen. No cystic lesions measuring greater than 3 cm. Other: No free pelvic fluid. IMPRESSION: No sonographic abnormality. Reviewed by: Gurpreet Chan MD on 10/05/2023 10:36 AM PDT Approved by: Gurpreet Chan MD on 10/05/2023 10:36 AM PDT Station ID: [id number]
== END 2023-10-04 19:00 | disposition home or self-care (01) ==
LOC: DI 18:59
PROVIDERS: ATTEND Nurse Practitioner
DX: R10.2 Pelvic and perineal pain (principal)